=== PATIENT | male | born 1980 | race Caucasian/White ===

== ENCOUNTER 2020-02-02 11:24 | Inpatient (IN) | payer BC, MEDICAID ==
--- NOTE | 2020-02-02 11:44 | EDM.PDOC ---
ED HPI GENERAL MEDICAL PROBLEM - General Chief Complaint: Neurological Problem Stated Complaint: [facility] Time Seen by Provider: 02/02/20 11:30 - History of Present Illness INITIAL COMMENTS - FREE TEXT/NARRATIVE: 39-year-old male presents the emergency room with a seizure. The patient is a heavy drinker he stopped drinking possibly last night possibly 2 days ago. He has been drinking lots of Gatorade in order to stay hydrated. The mother who was not present last night thinks he was drinking yesterday but cannot find an empty bottle anywhere. He went to bed early when she checked on him this morning he was laying between the wall and the side of the bed. He had vomited mostly liquid prior to the mother's arrival this was not black or dark- colored. The mother did then observe him having a seizure and sounds like a generalized tonic-clonic activity that lasted 2-1/2 minutes she had already called 911. During the seizure he had a loss of bladder control he apparently bit his tongue and had some clear bloody discharge after the seizure coming from his mouth. EMS states there were a lot of empty Gatorade bottles in the house. The patient uses Klonopin 0.5 mg at least 3 times a day however he has been off this for several days. Patient has been drinking heavily for the last couple of months. He has needed to be admitted for alcohol withdrawal in the past. - Related Data Allergies Allergy/AdvReac Type Severity Reaction Status Date / Time No Known Allergies Allergy Verified 10/17/17 22:43 CDT Home Meds: Home Meds ClonazePAM [KlonoPIN] 0.5 mg PO DAILY 02/02/20 [History] Omeprazole 20 mg PO DAILY 02/02/20 [History] lisinopriL [Prinivil] 40 mg PO DAILY 02/02/20 [History] Past Medical History - Past Health History Medical/Surgical History: Denies Medical/Surgical History Cardiovascular History: Reports: Hypertension Psychiatric History: Reports: Addiction Other Psychiatric History: alcohol abuse - Infectious Disease History Infectious Disease History: Reports: Chicken Pox Social & Family History - Caffeine Use Caffeine Use: Reports: None ED ROS GENERAL - Review of Systems Review Of Systems: Unable To Obtain Reason Not Obtained: Patient is still somewhat postictal ED EXAM, GENERAL - Physical Exam Exam: See Below Exam Limited By: Other (. He will answer simple questions and follow simple commands during the exam.) General Appearance: Other (Somewhat fidgety and anxious) Eye Exam: Bilateral Eye: Normal Inspection, PERRL Ears: Normal External Exam, Normal Canal, Hearing Grossly Normal, Normal TMs Nose: Normal Inspection, Normal Mucosa, No Blood Throat/Mouth: Normal Teeth, Normal Gums, Normal Oropharynx, No Airway Compromise, Other (Bite norman on his tongue and on the buccal mucosa) Head: Atraumatic, Normocephalic Neck: Normal Inspection, Supple, Non-Tender, Full Range of Motion. No: Lymphadenopathy (L), Lymphadenopathy (R), Tender Lateral, Tender Midline, Thyromegaly Respiratory/Chest: No Respiratory Distress, Lungs Clear, Normal Breath Sounds Cardiovascular: Regular Rate, Rhythm, No Edema, No Murmur GI/Abdominal: Normal Bowel Sounds, Soft, Non-Tender Back Exam: Normal Inspection. No: CVA Tenderness (L), CVA Tenderness (R) Course - Vital Signs Last Recorded V/S: Last Vital Signs Temp 37.6 C 02/02/20 11:28 Pulse 146 H 02/02/20 11:28 Resp 24 H 02/02/20 11:28 BP 166/129 H 02/02/20 11:28 Pulse Ox - Orders/Labs/Meds Orders: Active Orders 24 hr Category Date Time Status Patient Status [ADT] Routine ADT 02/02/20 13:01 Active Antiembolic Devices [RC] PER UNIT ROUTINE Care 02/02/20 13:04 Active CIWAA Assessment [RC] Q15M Care 02/02/20 13:04 Active CIWAA Assessment [RC] Q1H Care 02/02/20 13:04 Active CIWAA Assessment [RC] Q30M Care 02/02/20 13:04 Active CIWAA Assessment [RC] Q4H Care 02/02/20 13:04 Active Cardiac Monitoring [RC] CONTINUOUS Care 02/02/20 13:02 Active Height and Weight [RC] DAILY Care 02/02/20 13:00 Active Intake and Output [RC] QSHIFT Care 02/02/20 13:02 Active Notify Provider [RC] PRN Care 02/02/20 13:04 Active Oxygen Therapy [RC] PRN Care 02/02/20 13:01 Active VTE/DVT Education [RC] PER UNIT ROUTINE Care 02/02/20 13:01 Active Vital Signs [RC] Q2H Care 02/02/20 13:00 Active Nothing per Oral Now Diet [DIET] Diet 02/02/20 Dinner Active BASIC METABOLIC PANEL,BMP [CHEM] AM Lab 02/03/20 05:11 Ordered CBC WITH AUTO DIFF [HEME] AM Lab 02/03/20 05:11 Ordered CORONAVIRUS COVID-19 RAPID [MOLEC] Stat Lab 02/02/20 13:30 Received DRUG SCREEN, URINE [URCHEM] Stat Lab 02/02/20 11:44 Ordered MAGNESIUM [CHEM] AM Lab 02/03/20 05:11 Ordered PHOSPHORUS [CHEM] AM Lab 02/03/20 05:11 Ordered UA RFX LUIS FERNANDO AND CULT IF INDIC [URIN] Stat Lab 02/02/20 11:47 Ordered LORazepam [Ativan] Med 02/02/20 13:00 Active See Protocol IV ASDIRECTED LORazepam [Ativan] Med 02/02/20 13:00 Active See Protocol PO ASDIRECTED Lactated Ringers [Ringers, Lactated] 1,000 ml Med 02/02/20 12:00 Active IV ASDIRECTED Lactated Ringers [Ringers, Lactated] 1,000 ml Med 02/02/20 13:00 Active IV ASDIRECTED Ondansetron [Zofran] Med 02/02/20 13:00 Active 4 mg IV Q6H PRN Thiamine [Vitamin B-1] 1,000 mg Med 02/02/20 13:00 Active Magnesium Sulfate [Magnesium Sulfate 50%] 4 gm Folic Acid 1 mg Dextrose 5%-0.9% NaCl [Dextrose 5%-Normal Saline] 1,000 ml IV ASDIRECTED Antiembolic Hose [OM.PC] Per Unit Routine Oth 02/02/20 13:02 Ordered Resuscitation Status Routine Resus Stat 02/02/20 13:00 Ordered Medication Orders Lactated Ringer's (Ringers, Lactated) 1,000 mls @ 150 mls/hr IV ASDIRECTED MARILU Thiamine HCl 1,000 mg/Magnesium Sulfate 4 gm/ Folic Acid 1 mg/ Dextrose/Sodium Chloride 1,018.2 mls @ 125 mls/hr IV ASDIRECTED MARILU Lactated Ringer's (Ringers, Lactated) 1,000 mls @ 150 mls/hr IV ASDIRECTED MARILU Lorazepam (Ativan) 0 mg IV ASDIRECTED MARILU; Protocol Lorazepam (Ativan) 0 mg PO ASDIRECTED MARILU; Protocol Ondansetron HCl (Zofran) 4 mg IV Q6H PRN PRN Reason: Nausea/Vomiting Labs: Laboratory Tests 02/02/20 02/02/20 02/02/20 Range/Units 11:36 11:36 11:36 WBC 7.22 (4.23-9.07) K/mm3 RBC 4.34 L (4.63-6.08) M/mm3 Hgb 14.7 (13.7-17.5) gm/dl Hct 41.4 (40.1-51.0) % MCV 95.4 H D (79.0-92.2) fl MCH 33.9 H (25.7-32.2) pg MCHC 35.5 (32.2-35.5) g/dl RDW Std Deviation 43.0 (35.1-43.9) fL Plt Count 98 L (163-337) K/mm3 MPV 10.6 (9.4-12.3) fl Neut % (Auto) 85.9 H (34.0-67.9) % Lymph % (Auto) 3.2 L (21.8-53.1) % [place] % (Auto) 10.5 (5.3-12.2) % Eos % (Auto) 0 L (0.8-7.0) Baso % (Auto) 0.1 (0.1-1.2) % Neut # (Auto) 6.20 H (1.78-5.38) K/mm3 Lymph # (Auto) 0.23 L (1.32-3.57) K/mm3 [place] # (Auto) 0.76 (0.30-0.82) K/mm3 Eos # (Auto) 0.00 L (0.04-0.54) K/mm3 Baso # (Auto) 0.01 (0.01-0.08) K/mm3 Manual Slide Review Abnormal smear Sodium 134 L D (136-145) mEq/L Potassium 3.8 (3.5-5.1) mEq/L Chloride 94 L D (98-107) mEq/L Carbon Dioxide 17 L (21-32) mEq/L Anion Gap 26.8 H (5-15) BUN 9 (7-18) mg/dL Creatinine 1.1 (0.7-1.3) mg/dL Est Cr Clr Drug Dosing TNP Estimated GFR (MDRD) > 60 (>60) mL/min BUN/Creatinine Ratio 8.2 L (14-18) Glucose 250 H (74-106) mg/dL Calcium 9.4 (8.5-10.1) mg/dL Phosphorus 1.4 L (2.6-4.7) mg/dL Magnesium 1.9 (1.8-2.4) mg/dl Total Bilirubin 2.1 H (0.2-1.0) mg/dL GGT 1542 H (15-85) U/L AST 185 H (15-37) U/L ALT 136 H (16-63) U/L Alkaline Phosphatase 109 (46-116) U/L Total Protein 8.1 (6.4-8.2) g/dl Albumin 4.2 (3.4-5.0) g/dl Globulin 3.9 gm/dL Albumin/Globulin Ratio 1.1 (1-2) TSH 3rd Generation 0.973 (0.358-3.74) uIU/mL Ethyl Alcohol 0.00 (0.00) gm% Meds: Medications Generic Name Dose Route Start Last Admin Trade Name Freq PRN Reason Stop Dose Admin Lactated Ringer's 1,000 mls @ 150 mls/hr 02/02/20 12:00 Ringers, Lactated IV ASDIRECTED MARILU Thiamine HCl 1,000 mg/ 1,018.2 mls @ 125 mls/hr 02/02/20 13:00 Magnesium Sulfate 4 gm/ Folic IV Acid 1 mg/ Dextrose/Sodium ASDIRECTED MARILU Chloride Lactated Ringer's 1,000 mls @ 150 mls/hr 02/02/20 13:00 Ringers, Lactated IV ASDIRECTED MARILU Lorazepam 0 mg 02/02/20 13:00 Ativan IV ASDIRECTED MARILU Protocol Lorazepam 0 mg 02/02/20 13:00 Ativan PO ASDIRECTED MARILU Protocol Ondansetron HCl 4 mg 02/02/20 13:00 Zofran IV Q6H PRN Nausea/Vomiting Discontinued Medications Generic Name Dose Route Start Last Admin Trade Name Freq PRN Reason Stop Dose Admin Cyanocobalamin 1,000 mcg 02/02/20 12:22 02/02/20 13:38 Vitamin B12 IM 02/02/20 12:23 1,000 mcg ONETIME ONE Administration Folic Acid 1 mg 02/03/20 12:22 Folic Acid IV 02/03/20 12:23 ONETIME ONE Lactated Ringer's 1,000 mls @ 999 mls/hr 02/02/20 11:48 02/02/20 11:55 Ringers, Lactated IV 02/02/20 12:48 999 mls/hr .BOLUS ONE Administration Lorazepam 2 mg 02/02/20 11:48 02/02/20 11:55 Ativan IVPUSH 02/02/20 11:49 2 mg ONETIME ONE Administration Lorazepam 1 mg 02/02/20 12:16 02/02/20 12:24 Ativan IVPUSH 02/02/20 12:17 1 mg ONETIME ONE Administration Lorazepam Confirm 02/02/20 13:00 02/02/20 13:40 Ativan Administered 02/02/20 13:01 Not Given Dose 2 mg .ROUTE .STK-MED ONE Lorazepam 2 mg 02/02/20 13:09 02/02/20 13:37 Ativan IVPUSH 02/02/20 13:10 2 mg ONETIME ONE Administration Thiamine HCl 100 mg 02/02/20 12:23 02/02/20 13:39 Vitamin B-1 IVPUSH 02/02/20 12:24 100 mg ONETIME ONE Administration - Re-Assessments/Exams Free Text/Narrative Re-Assessment/Exam: 02/02/20 12:47 GGT is very elevated blood alcohol is 0.0. I have discussed the situation with Dr. Duarte, our hospitalist who is discussing staffing issues and will see if we were capable of admitting this gentleman. 02/02/20 13:58 Dr. Duarte is capable of taking on the patient and we have staffing. She will assume further care. Departure - Departure Time of Disposition: 13:59 Disposition: Admitted As Inpatient 64 Clinical Impression: Alcohol withdrawal syndrome, Alcohol withdrawal seizure - Discharge Information Forms: ED Department Discharge Sepsis Event Note (ED) - Evaluation Sepsis Screening Result: No Definite Risk - Focused Exam Vital Signs: Vital Signs Temp Pulse Resp BP 02/02/20 11:28 37.6 C 146 H 24 H 166/129 H - My Orders Last 24 Hours: My Active Orders 02/02/20 11:44 DRUG SCREEN, URINE [URCHEM] Stat 02/02/20 11:47 UA RFX LUIS FERNANDO AND CULT IF INDIC [URIN] Stat 02/02/20 12:00 Lactated Ringers [Ringers, Lactated] 1,000 ml IV ASDIRECTED 02/02/20 13:30 CORONAVIRUS COVID-19 RAPID [MOLEC] Stat - Assessment/Plan Last 24 Hours: My Active Orders 02/02/20 11:44 DRUG SCREEN, URINE [URCHEM] Stat 02/02/20 11:47 UA RFX LUIS FERNANDO AND CULT IF INDIC [URIN] Stat 02/02/20 12:00 Lactated Ringers [Ringers, Lactated] 1,000 ml IV ASDIRECTED 02/02/20 13:30 CORONAVIRUS COVID-19 RAPID [MOLEC] Stat
[2020-02-02] MEDS ORDERED: LORazepam 2 MG/ML SDV IVPUSH ONE ×3 (11:48→13:09)
[2020-02-02] MEDS ORDERED: Lactated Ringers 1,000 ML IV ONE (11:48)
[2020-02-02] MEDS ORDERED: Lactated Ringers 1,000 ML IV SCH (12:00)
[2020-02-02] MEDS ORDERED: Cyanocobalamin (Vitamin B12) 1,000 MCG/ML SDV IM ONE (12:22)
[2020-02-02] MEDS ORDERED: Thiamine 200 MG/2 ML MDV IVPUSH ONE (12:23)
--- NOTE | 2020-02-02 12:55 | CT ---
Head CT Technique: Multiple axial sections through the brain were obtained. Intravenous contrast was not utilized. Comparison: No prior intracranial imaging is available. Findings: Ventricles along the basal cisterns and sulci over the convexities are within normal limits for the patient's age. Equivocal low density is noted within the posterior right occipital lobe. No other abnormal parenchymal densities are seen. No evidence of intracranial hemorrhage. No midline shift or mass-effect is appreciated. Bone window settings were reviewed which show no acute calvarial finding. Visualized mastoid sinuses and visualized paranasal sinuses show nothing acute. Impression: 1. Equivocal abnormality within the posterior right parietal region. Recommend MRI to further evaluate. Given the history of seizure contrast MRI study is also recommended. 2. No other acute finding is appreciated on noncontrasted CT exam. Diagnostic code #9 This report was dictated in MDT
[2020-02-02] MEDS ORDERED: LORazepam 2 MG/ML SDV ONE (13:00)
[2020-02-02] MEDS ORDERED: LORazepam 1 MG Tab PO SCH (13:00)
[2020-02-02] MEDS ORDERED: Thiamine 1,000 MG, Magnesium Sulfate 4 GM, Folic Acid 1 MG in Dextrose 5%-0.9% NaCl 1,0... IV SCH (13:00)
[2020-02-02] MEDS ORDERED: Ondansetron 4 MG/2 ML SDV IV PRN (13:00)
--- NOTE | 2020-02-02 13:36 | PCM.HP.2 ---
H&P History of Present Illness - General Date of Service: 02/02/20 Admit Problem/Dx: Admission Diagnosis/Problem Admission Diagnosis/Problem Alcohol withdrawal syndrome - History of Present Illness Initial Comments - Free Text/Narative: This is a 39-year-old male with past medical history of alcohol abuse, anxiety and hypertension who was brought to the emergency room by mom after having a seizure at home. As per patient's mom seizure was tonic-clonic movements, lasted about 2-1/2 minutes, just lose control of his urine, not of his bowel. Postictal state for about 15 minutes afterwards As per mom he has been a heavy drinker for the past 20 years as well as smoker of half A pack a day. Has been having increased drinking activity since he was fired 4 months ago. Was drinking yesterday, states his last drink was probably between 5 and 7 PM. Has not eaten anything in approximately 5 days Does state that he has lost about 25 pounds in the past month - Related Data Allergies/Adverse Reactions: Allergies Allergy/AdvReac Type Severity Reaction Status Date / Time No Known Allergies Allergy Verified 10/17/17 22:43 CDT Home Medications: Home Meds ClonazePAM [KlonoPIN] 0.5 mg PO DAILY 02/02/20 [History] Omeprazole 20 mg PO DAILY 02/02/20 [History] lisinopriL [Prinivil] 40 mg PO DAILY 02/02/20 [History] Past Medical History - Past Health History Medical/Surgical History: Denies Medical/Surgical History Cardiovascular History: Reports: Hypertension Psychiatric History: Reports: Addiction Other Psychiatric History: alcohol abuse - Infectious Disease History Infectious Disease History: Reports: Chicken Pox Social & Family History - Tobacco Use Smoking Status *Q: Current Every Day Smoker Years of Tobacco use: 20 Packs/Tins Daily: 0.5 - Caffeine Use Caffeine Use: Reports: None - Recreational Drug Use Recreational Drug Use: No H&P Review of Systems - Review of Systems: Review Of Systems: Unable To Obtain Reason Not Obtained: Patient severely agitated and hallucinating Exam - Exam Exam: See Below - Vital Signs Vital Signs: Last Vital Signs Temp 99.6 F 02/02/20 11:28 Pulse 146 H 02/02/20 11:28 Resp 24 H 02/02/20 11:28 BP 166/129 H 02/02/20 11:28 Pulse Ox Weight: 2.58 kg - Exam General: Lethargic. No: Oriented HEENT: Mucosa Moist & [place]. No: Conjunctiva Clear (injected) Neck: Supple, Trachea Midline, +2 Carotid Pulse wo Bruit, Full Range of Motion. No: Lymphadenopathy Lungs: Clear to Auscultation, Normal Respiratory Effort. No: Decreased Breath Sounds, Crackles, Rales, Rhonchi, Rub, Stridor, Wheezing Cardiovascular: Regular Rate, Regular Rhythm. No: Systolic Murmur, Diastolic Murmur, Rubs, Gallop/S3, Gallop/S4 GI/Abdominal Exam: Normal Bowel Sounds, Soft, Non-Tender, Distended. No: Guarding, Rigid, Rebound Extremities: Normal Inspection, Normal Range of Motion, Non-Tender, No Pedal Edema, Normal Capillary Refill Peripheral Pulses: 2+: Radial (L), Radial (R), Dorsalis Pedis (L), Dorsalis Pedis (R) Skin: Cool, Moist - Patient Data Result Diagrams: 02/03/20 05:25 02/03/20 05:25 Sepsis Event Note - Evaluation Sepsis Screening Result: No Definite Risk - Problem List (1) Delirium tremens SNOMED Code(s): 4913689 ICD Code: F10.231 - ALCOHOL DEPENDENCE WITH WITHDRAWAL DELIRIUM Status: Acute Current Visit: Yes (2) Anxiety SNOMED Code(s): 23403109 ICD Code: F41.9 - ANXIETY DISORDER, UNSPECIFIED Status: Acute Current Visit: Yes (3) Depression SNOMED Code(s): 23756640 ICD Code: F32.9 - MAJOR DEPRESSIVE DISORDER, SINGLE EPISODE, UNSPECIFIED Status: Acute Current Visit: Yes (4) Thrombocytopenia SNOMED Code(s): 790153073 ICD Code: D69.6 - THROMBOCYTOPENIA, UNSPECIFIED Status: Acute Current Visit: Yes (5) Abnormal LFTs SNOMED Code(s): 046112956 ICD Code: R94.5 - ABNORMAL RESULTS OF LIVER FUNCTION STUDIES Status: Acute Current Visit: Yes (6) Uncontrolled hypertension SNOMED Code(s): 03895715, 33120388 ICD Code: I10 - ESSENTIAL (PRIMARY) HYPERTENSION Status: Acute Current Visit: Yes (7) Sinus tachycardia SNOMED Code(s): 85553437 ICD Code: R00.0 - TACHYCARDIA, UNSPECIFIED Status: Acute Current Visit: Yes (8) Smoker SNOMED Code(s): 18968108 ICD Code: F17.200 - NICOTINE DEPENDENCE, UNSPECIFIED, UNCOMPLICATED Status: Acute Current Visit: Yes (9) Alcohol withdrawal seizure SNOMED Code(s): 383389109 ICD Code: F10.239 - ALCOHOL DEPENDENCE WITH WITHDRAWAL, UNSPECIFIED; R56.9 - UNSPECIFIED CONVULSIONS Status: Acute Current Visit: Yes (10) Alcohol withdrawal syndrome SNOMED Code(s): 551600214 ICD Code: F10.239 - ALCOHOL DEPENDENCE WITH WITHDRAWAL, UNSPECIFIED Status: Acute Current Visit: Yes (11) Alcohol abuse SNOMED Code(s): 42627277 ICD Code: F10.10 - ALCOHOL ABUSE, UNCOMPLICATED Status: Acute Current Visit: No (12) Hypertensive emergency SNOMED Code(s): 813902994524355 ICD Code: I16.1 - HYPERTENSIVE EMERGENCY Status: Acute Current Visit: Yes Problem List Initiated/Reviewed/Updated: Yes Assessment/Plan Comment:: ASSESSMENT Brought in by mom after seizure secondary to decreased alcohol intake Has had alcohol abuse problems approximately 20 years, multiple rehab stays. Last 1 in rehab facility here in [place] 4 years ago for 90 days Mom states "I am sure he has done every drug, but probably stopped 4 years ago" Has not eaten anything in 5 days Last drink yesterday between 5 and 7 PM Normally drinks about 1/5 or more a day of vodka but recently has been drinking more beer Mom to denies any prior suicidal ideation or attempts, per psychiatric admits Chronic benzodiazepine user, prescribed to take 3 times daily but mom states he takes them all at once Diagnosed with hypertension about 10 years ago as per mom, has never been controlled Patient got severely agitated during my evaluation, jumped out of bed and fell on his knees with severe hallucinations Decision was made to intubate, this was done in the emergency department Significant trauma to his tongue and inner cheeks after seizures Vital signs on admission: BP 166/129 (141), HR 146, RR 24, temp 99.6 Lab test Platelets 98,000 Chemistry: sodium 134, potassium 3.8, chloride 94, CO2 17, GFR more than 60, glucose 250 Liver function test: Total bilirubin 2.1, alkaline phosphatase 109, ALT 185, AST 136, total protein 8.1, albumin 4.2, GGT 1542 PLAN BY SYSTEMS Neurology: Minimize central acting medications as possible. Daily sedation vacation. Frequent neurologic exams by nursing staff. Continue sedation with Fentanyl and Versed for now and taper down as tolerated. Start Dexmedetomidine Goal RAAS -2 to -4 Banana bag x2 QD Respiratory: Start mechanical ventilation Aspiration precautions Oral care and regular suctioning by nursing Daily spontaneous breathing trials ABG and CXR as needed Cardiovascular: IVF resuscitation with LR Goal MAP > 65 GI and Nutrition: Insert OG tube, care by nursing OG tube at intermittent suctioning NPO for now PRN bowel regimen Kidney and Electrolytes: Insert Fontanez catheter for strict I/O Avoid nephrotoxic medications Renally dosed medications Labs as needed Endocrine: Scheduled Accu-checks q6h while NPO Hypoglycemia protocol in place. Infectious Disease: Trend temperature. Panculture if febrile. Hematology and Coagulation: No active bleeding, no coagulopathy to correct, no need to transfuse blood products at the moment. Goal hemoglobin >7g Musculoskeletal and Skin: Bed turn rotation by nursing staff. Daily evaluation for pressure ulcers. PROPHYLAXIS: DVT- Lovenox GI- Protonix CODE STATUS: FULL CODE DISPOSITION: Patient will be admitted to the ICU on mechanical ventilation for monitorization of alcohol withdrawal, SBT to evaluate extubation. - Mortality Measure Prognosis:: Good
[2020-02-02] MEDS ORDERED: hydrALAZINE 20 MG/ML SDV IVPUSH ONE (14:34)
[2020-02-02] MEDS: LORazepam 2 MG/ML SDV IV SCH (14:48)
[2020-02-02] MEDS ORDERED: Etomidate 2 MG/ML 20 ML SDV IVPUSH ONE (16:00)
[2020-02-02] MEDS ORDERED: Propofol 200 MG/20 ML SDV ONE (16:00)
[2020-02-02] MEDS ORDERED: Succinylcholine 200 MG/10 ML MDV ONE (16:00)
[2020-02-02] MEDS ORDERED: propofoL 100 ML ONE (16:48)
[2020-02-02] MEDS ORDERED: Labetalol 100 MG/20 ML MDV ONE (16:49)
[2020-02-02] MEDS ORDERED: fentaNYL 2,500 MCG in Sodium Chloride 0.9% 200 ML IV SCH (17:15)
--- NOTE | 2020-02-02 17:24 | PCM.PRNOTE ---
- Free Text/Narrative Note: Endotracheal Intubation Date: 02/02/2020 Time: 16:36 Indication: Airway protection Attending: Sharonda Duarte MD A time-out was completed verifying correct patient, procedure, site, positioning, and special equipment if applicable. The patient was placed in a flat position. Sedation was obtained using Etomidate, Succinylcholine and Propofol. The patient was easily ventilated using an Ambu bag. The MAC 4 BLADE was used and inserted into the oropharynx at which time there was a Grade 2 view of the vocal cords. A 7.5-icelandic endotracheal tube was inserted and visualized going through the voc al cords. The stylette was removed. Colorimetric change was visualized on the CO2 meter. Breath sounds were heard in both lung witt equally. The endotracheal tube was placed at 26 cm, measured at the teeth. A chest x-ray was ordered to assess forpneumothoraxand verifyendotracheal tube placement, advanced tube to 28cm at teeth. Estimated Blood Loss: None The patient tolerated the procedure well and there were no complications.
[2020-02-02] MEDS: fentaNYL 2,500 MCG in Sodium Chloride 0.9% 200 ML IV SCH (17:32)
[2020-02-02] MEDS: dexMEDEtomidine in dextrose 5% 400 MCG in Premix Bag 1 BAG IV SCH ×4 (17:33→20:28)
--- NOTE | 2020-02-02 17:50 | CR ---
Chest: Portable supine view of the chest was obtained. Comparison: Prior chest x-ray is not available. Tip of endotracheal tube lies at the upper level of the clavicles. Nasogastric tube is seen with tip lying within the region of the stomach. Heart size and mediastinum are normal. Lungs are clear with no acute parenchymal change. Bony structures are unremarkable other than old unhealed trauma within the distal left clavicle. Impression: 1. Tip of endotracheal tube at the upper levels of the clavicle. 2. Tip of nasogastric tube within the stomach. 3. Nothing acute is otherwise appreciated on portable chest x-ray. Diagnostic code #2 This report was dictated in MDT
[2020-02-02] MEDS: Lactated Ringers 1,000 ML IV SCH ×2 (19:00→23:54)
[2020-02-03] MEDS ORDERED: Furosemide 20 MG/2 ML VIAL IVPUSH ONE (00:48)
[2020-02-03] MEDS: LORazepam 2 MG/ML SDV IV SCH (03:04)
[2020-02-03] MEDS ORDERED: propofoL 100 ML ONE (03:14)
[2020-02-03] MEDS: propofoL 100 ML IV SCH ×4 (03:15→19:46)
[2020-02-03] MEDS: Lactated Ringers 1,000 ML IV SCH ×4 (03:45→23:47)
[2020-02-03] MEDS ORDERED: Sodium Chloride 0.9% 1,000 ML IV ONE (06:53)
[2020-02-03] MEDS: fentaNYL 2,500 MCG in Sodium Chloride 0.9% 200 ML IV SCH ×2 (07:44→23:47)
--- NOTE | 2020-02-03 08:40 | PCM.PN ---
- General Info Date of Service: 02/03/20 Subjective Update: INTERVAL HISTORY Overnight Events: - Urine output was minimal - Required high doses of sedation Vital Signs: MAP trend: 70-148 HR trend: 100-146x' Tmax: 101 SatO2: >96% Drips and IVF: Propofol @ 35 Versed @ 15 Fentanyl @ 10 Mechanical Ventilation: Intubation day: 02/02/2020 Mode: ACVC Vt: 400 FiO2: 35% PEEP: 5 PIP: 10 Pmean: 8 Pplateau: 15 I/E: 1:2.3 Cstat: 40 I/Os: UO: 255 24h balance: +2,406 BM: unknown New results: Hb 14.7 down to 12.4 Platelets down from 98 to 59 Na up from 134 to 140 K down from 3.8 to 2.8 GFR down from >60 to 30 PO4 up from 1.4 to 1.8 Mg up from 1.9 to 2.6 Diet: NPO Lines and tubes: ETT 02/02/2020 Fontanez catheter 02/02/2020 OG tube 02/02/2020 - Patient Data Vitals - Most Recent: Last Vital Signs Temp 97.6 F 02/03/20 08:00 Pulse 97 02/03/20 07:00 Resp 14 02/03/20 08:20 BP 98/66 02/03/20 08:00 Pulse Ox 97 02/03/20 08:20 Weight - Most Recent: 81.647 kg - Exam General: Sedated HEENT: No: Mucous Membr. Moist/[place] (dry with severe hallitosis) Neck: Supple, Other (mass over sternocleidomastoid 3X4 in) Lungs: Clear to Auscultation. No: Crackles, Rales, Rhonchi, Rub, Stridor, Wheezing Cardiovascular: Regular Rate, Regular Rhythm. No: Murmurs, Gallops, Rubs GI/Abdominal Exam: Normal Bowel Sounds, Soft, No Distention Extremities: Normal Inspection, No Pedal Edema Skin: Moist Sepsis Event Note - Evaluation Sepsis Screening Result: No Definite Risk - Problem List & Annotations (1) Delirium tremens SNOMED Code(s): 6288919 Code(s): F10.231 - ALCOHOL DEPENDENCE WITH WITHDRAWAL DELIRIUM Status: Acute Current Visit: Yes (2) Anxiety SNOMED Code(s): 81997917 Code(s): F41.9 - ANXIETY DISORDER, UNSPECIFIED Status: Acute Current Visit: Yes (3) Depression SNOMED Code(s): 80880523 Code(s): F32.9 - MAJOR DEPRESSIVE DISORDER, SINGLE EPISODE, UNSPECIFIED Status: Acute Current Visit: Yes (4) Thrombocytopenia SNOMED Code(s): 013018189 Code(s): D69.6 - THROMBOCYTOPENIA, UNSPECIFIED Status: Acute Current Visit: Yes (5) Abnormal LFTs SNOMED Code(s): 198719181 Code(s): R94.5 - ABNORMAL RESULTS OF LIVER FUNCTION STUDIES Status: Acute Current Visit: Yes (6) Uncontrolled hypertension SNOMED Code(s): 60187320, 20158894 Code(s): I10 - ESSENTIAL (PRIMARY) HYPERTENSION Status: Acute Current Visit: Yes (7) Sinus tachycardia SNOMED Code(s): 71009899 Code(s): R00.0 - TACHYCARDIA, UNSPECIFIED Status: Acute Current Visit: Yes (8) Smoker SNOMED Code(s): 85058483 Code(s): F17.200 - NICOTINE DEPENDENCE, UNSPECIFIED, UNCOMPLICATED Status: Acute Current Visit: Yes (9) Alcohol withdrawal seizure SNOMED Code(s): 515314523 Code(s): F10.239 - ALCOHOL DEPENDENCE WITH WITHDRAWAL, UNSPECIFIED; R56.9 - UNSPECIFIED CONVULSIONS Status: Acute Current Visit: Yes (10) Alcohol withdrawal syndrome SNOMED Code(s): 372230904 Code(s): F10.239 - ALCOHOL DEPENDENCE WITH WITHDRAWAL, UNSPECIFIED Status: Acute Current Visit: Yes (11) Alcohol abuse SNOMED Code(s): 27525713 Code(s): F10.10 - ALCOHOL ABUSE, UNCOMPLICATED Status: Acute Current Visit: No (12) Hypertensive emergency SNOMED Code(s): 533730429188053 Code(s): I16.1 - HYPERTENSIVE EMERGENCY Status: Acute Current Visit: Yes (13) Neck mass SNOMED Code(s): 530816295 Code(s): R22.1 - LOCALIZED SWELLING, MASS AND LUMP, NECK Status: Acute Current Visit: Yes (14) Hypokalemia SNOMED Code(s): 82596432 Code(s): E87.6 - HYPOKALEMIA Status: Acute Current Visit: Yes (15) Oliguria SNOMED Code(s): 30935320 Code(s): R34 - ANURIA AND OLIGURIA Status: Acute Current Visit: Yes (16) Anemia SNOMED Code(s): 111013849 Code(s): D64.9 - ANEMIA, UNSPECIFIED Status: Acute Current Visit: Yes (17) Urethral discharge in male SNOMED Code(s): 9946375 Code(s): R36.9 - URETHRAL DISCHARGE, UNSPECIFIED Status: Acute Current Visit: Yes - Problem List Review Problem List Initiated/Reviewed/Updated: Yes - Assessment Assessment:: 02/02/2020 Brought in by mom after seizure secondary to decreased alcohol intake Has had alcohol abuse problems approximately 20 years, multiple rehab stays. Last 1 in rehab facility here in [place] 4 years ago for 90 days Mom states "I am sure he has done every drug, but probably stopped 4 years ago" Has not eaten anything in 5 days Last drink yesterday between 5 and 7 PM Normally drinks about 1/5 or more a day of vodka but recently has been libby acosta more beer Mom to denies any prior suicidal ideation or attempts, per psychiatric admits Chronic benzodiazepine user, prescribed to take 3 times daily but mom states he takes them all at once Diagnosed with hypertension about 10 years ago as per mom, has never been controlled Patient got severely agitated during my evaluation, jumped out of bed and fell on his knees with severe hallucinations Decision was made to intubate, this was done in the emergency department Significant trauma to his tongue and inner cheeks after seizures Vital signs on admission: BP 166/129 (141), HR 146, RR 24, temp 99.6 Lab test Platelets 98,000 Chemistry: sodium 134, potassium 3.8, chloride 94, CO2 17, GFR more than 60, glucose 250 Liver function test: Total bilirubin 2.1, alkaline phosphatase 109, ALT 185, AST 136, total protein 8.1, albumin 4.2, GGT 1542 PLAN Sedation with Fentanyl, Versed and Precedex Banana bag x2 QD Start mechanical ventilation IVF resuscitation with LR Insert OG tube, care by nursing OG tube at intermittent suctioning Insert Fontanez catheter for strict I/O Scheduled Accu-checks q6h while NPO Hypoglycemia protocol in place. 02/03/2020 Urine output significantly dropped overnight with total output <300 in 12h GFR drom from >60 to 30 FeNa 1.26%, not pre-renal Required high doses of sedation overnight--> started on propofol Central line placed - Plan Plan:: Neurology: Minimize central acting medications as possible. Daily sedation vacation. Frequent neurologic exams by nursing staff. Continue sedation with Dexmedetomidine, Fentanyl and Versed for now and taper down as tolerated. Goal RAAS -2 to -4 Banana bag #2 today Respiratory: Continue mechanical ventilation Aspiration precautions Oral care and regular suctioning by nursing Daily spontaneous breathing trials ABG and CXR as needed Cardiovascular: IVF resuscitation with LR Goal MAP > 65 GI and Nutrition: OG tube care by nursing OG tube at intermittent suctioning NPO for now PRN bowel regimen Kidney and Electrolytes: Fontanez catheter care Avoid nephrotoxic medications Renally dosed medications Labs as needed Endocrine: Scheduled Accu-checks q6h while NPO Hypoglycemia protocol in place. Infectious Disease: Swab penile discharge and send to lab for culture, Gonorrhea and Chlamydia Trend temperature. Panculture if febrile. Hematology and Coagulation: No active bleeding, no coagulopathy to correct, no need to transfuse blood products at the moment. Goal hemoglobin >7g Musculoskeletal and Skin: Bed turn rotation by nursing staff. Daily evaluation for pressure ulcers. PROPHYLAXIS: DVT- Lovenox GI- Protonix CODE STATUS: FULL CODE DISPOSITION: Patient will remain admitted to the ICU on mechanical ventilation for monitorization of alcohol withdrawal under sedation.
[2020-02-03] MEDS ORDERED: Potassium Phosphates 60 MMOLE in Sodium Chloride 0.9% 1,000 ML IV ONE (11:00)
[2020-02-03] MEDS ORDERED: Lactated Ringers 1,000 ML IV ONE ×2 (11:00→12:00)
[2020-02-03] MEDS ORDERED: Folic Acid 50 MG/10 ML MDV IV ONE (12:22)
[2020-02-03] MEDS: dexMEDEtomidine in dextrose 5% 400 MCG in Premix Bag 1 BAG IV SCH ×2 (16:54)
--- NOTE | 2020-02-03 18:06 | PCM.PRNOTE ---
- Free Text/Narrative Note: Central Venous Catheter Placement Date: 02/03/2020 Indication: Caustic medication use Attending: Sharonda Duarte MD A time-out was completed verifying correct patient, procedure, site, positioning, and special equipment if applicable. The patient was placed in a dependent position appropriate for central line placement based on the vein to becannulated. The patients right neck was prepped and draped in sterile fashion. Ultrasound was used to locate internal jugular lumen, observed next to mass. 1%Lidocainewas used to anesthetize the surrounding skin area. Insertion was attempted without success. Decision was made to change sides. The patients left neck was prepped and draped in sterile fashion. 1%Lidocainewas used to anesthetize the surrounding skin area. A triple lumen 7-FrenchCordiscatheter was introduced into the the left internal jugular using the Seldingertechnique and under ultrasound guidance. The catheter was threaded smoothly over the guide wire and appropriate blood return was obtained. Each lumen of the catheter was evacuated of air and flushed with sterile saline. The catheter was then sutured in place to the skin and a sterile dressing applied. Perfusion to the extremity distal to the point of catheter insertion was checked and found to be adequate. Estimated Blood Loss: 30mL The patient tolerated the procedure well and there were no complications.
[2020-02-03] MEDS ORDERED: Furosemide 40 MG/4 ML VIAL IVPUSH ONE (19:34)
[2020-02-03] MEDS: Acetaminophen 650 MG Supp RECTAL PRN (20:20)
[2020-02-03] MEDS: Ampicillin/Sulbactam Na 3 GM in Sodium Chloride 0.9% 100 ML IV SCH (20:21)
[2020-02-03] MEDS ORDERED: Azithromycin 1,000 MG in Sodium Chloride 0.9% 500 ML IV ONE (22:00)
[2020-02-03] MEDS ORDERED: cefTRIAXone 1 GM in Sodium Chloride 0.9% 100 ML IV ONE (22:00)
[2020-02-04] MEDS: propofoL 100 ML IV SCH ×2 (01:12→05:16)
[2020-02-04] MEDS: Ampicillin/Sulbactam Na 3 GM in Sodium Chloride 0.9% 100 ML IV SCH ×4 (03:28→20:48)
[2020-02-04] MEDS: Lactated Ringers 1,000 ML IV SCH ×5 (03:28→22:36)
[2020-02-04] MEDS: dexMEDEtomidine in dextrose 5% 400 MCG in Premix Bag 1 BAG IV SCH ×4 (09:56→19:10)
[2020-02-04] MEDS ORDERED: Midazolam 5 MG/ML 5 ML MDV IV ONE (10:10)
[2020-02-04] MEDS ORDERED: Midazolam 5 MG/ML 10 ML MDV IV ONE (10:10)
[2020-02-04] MEDS ORDERED: levETIRAcetam 1,000 MG in Sodium Chloride 0.9% 100 ML IV ONE (10:14)
[2020-02-04] MEDS ORDERED: Labetalol 100 MG/20 ML MDV ONE (10:30)
[2020-02-04] MEDS ORDERED: Labetalol 100 MG/20 ML MDV IVPUSH ONE (10:33)
[2020-02-04] MEDS ORDERED: 50% Dextrose in Water 50 ML Syringe IVPUSH PRN (10:35)
[2020-02-04] MEDS ORDERED: Magnesium Sulfate/Water 2 GM in Premix Bag 1 BAG IV ONE (11:12)
[2020-02-04] MEDS ORDERED: Levofloxacin/Dextrose 5%-Water 750 MG in Premix Bag 1 BAG IV SCH (11:30)
--- NOTE | 2020-02-04 11:31 | PCM.PN ---
- General Info Date of Service: 02/04/20 Subjective Update: INTERVAL HISTORY Overnight Events: - Urine output was increased after Lasix Vital Signs: BP trend: 87-126/52-105 HR trend: 91-116x' Tmax: 101.1 SatO2: >87% Drips and IVF: Propofol @ 15 Versed @ 15 Fentanyl @ 20 LR @250 Mechanical Ventilation: Intubation day: 02/02/2020 Mode: ACVC Vt: 400 FiO2: 50% RR: 12 PEEP: 5 PIP: 20 Pmean: 9 Pplateau: 15 I/E: 1:5.1 Cstat: 41 New results: WBC down from 5.21 to 3.05 Hb 12.4 down to 11 Platelets down from 59 to 50 Na up from 134 to 140 K up from 2.8 to 4.1 GFR down from 30 to 16 PO4 up from 1.8 to 6.5 Mg up down from 2.6 to 1.7 ABGs7.19/47/56/17./87 Diet: NPO Lines and tubes: ETT 02/02/2020 Fontanez catheter 02/02/2020 OG tube 02/02/2020 - Patient Data Vitals - Most Recent: Last Vital Signs Temp 99.9 F 02/04/20 07:50 Pulse 114 H 02/04/20 06:00 Resp 12 02/04/20 07:50 BP 129/85 02/04/20 07:01 Pulse Ox 97 02/04/20 08:49 Weight - Most Recent: 82.735 kg Sepsis Event Note - Evaluation Sepsis Screening Result: Severe Sepsis Risk - Focused Exam Vital Signs: Vital Signs Temp Temp Temp Pulse Resp BP BP 02/04/20 08:49 02/04/20 08:28 02/04/20 07:50 99.9 F 12 02/04/20 07:40 99.9 F 13 02/04/20 07:30 99.9 F 13 02/04/20 07:20 99.9 F 14 02/04/20 07:10 99.9 F 12 02/04/20 07:01 99.9 F 13 129/85 02/04/20 07:00 99.9 F 12 02/04/20 06:50 99.9 F 13 02/04/20 06:40 100.0 F 12 02/04/20 06:30 100.0 F 13 02/04/20 06:20 100.0 F 12 02/04/20 06:10 100.0 F 13 02/04/20 06:01 100.2 F 12 127/86 02/04/20 06:00 100.2 F 100.0 F 114 H 13 127/86 02/04/20 05:50 100.2 F 11 L 02/04/20 05:40 100.2 F 13 02/04/20 05:30 100.2 F 13 02/04/20 05:20 100.2 F 11 L 02/04/20 05:10 100.2 F 12 02/04/20 05:01 100.2 F 13 131/90 02/04/20 05:00 100.2 F 111 H 14 131/90 02/04/20 04:50 100.2 F 13 02/04/20 04:40 100.2 F 13 02/04/20 04:30 100.2 F 12 02/04/20 04:20 100.2 F 12 02/04/20 04:10 100.0 F 11 L 02/04/20 04:01 99.9 F 11 L 123/93 H 02/04/20 04:00 99.9 F 100.2 F 111 H 10 L 123/93 H 02/04/20 03:50 99.9 F 12 02/04/20 03:40 99.7 F 17 02/04/20 03:30 99.9 F 13 02/04/20 03:20 99.7 F 12 02/04/20 03:10 99.7 F 12 02/04/20 03:01 99.7 F 12 02/04/20 03:00 99.7 F 116 H 13 124/87 124/87 02/04/20 02:59 99.7 F 12 02/04/20 02:50 99.7 F 12 02/04/20 02:40 99.7 F 12 02/04/20 02:30 99.7 F 12 02/04/20 02:20 99.7 F 13 02/04/20 02:10 99.5 F 12 02/04/20 02:01 99.5 F 14 02/04/20 02:00 99.5 F 99.5 F 108 H 13 126/81 126/81 02/04/20 01:59 99.5 F 14 02/04/20 01:50 99.5 F 12 02/04/20 01:40 99.3 F 13 02/04/20 01:30 99.3 F 11 L 02/04/20 01:20 99.3 F 13 02/04/20 01:10 99.3 F 14 02/04/20 01:01 99.3 F 13 02/04/20 01:00 99.3 F 105 H 13 124/81 02/04/20 00:02 02/04/20 00:00 99.1 F 104 H 12 113/81 Pulse Ox Pulse Ox 02/04/20 08:49 97 02/04/20 08:28 90 L 02/04/20 07:50 94 L 02/04/20 07:40 91 L 02/04/20 07:30 94 L 02/04/20 07:20 93 L 02/04/20 07:10 93 L 02/04/20 07:01 93 L 02/04/20 07:00 93 L 02/04/20 06:50 91 L 02/04/20 06:40 93 L 02/04/20 06:30 93 L 02/04/20 06:20 93 L 02/04/20 06:10 92 L 02/04/20 06:01 93 L 02/04/20 06:00 93 L 02/04/20 05:50 94 L 02/04/20 05:40 93 L 02/04/20 05:30 94 L 02/04/20 05:20 95 02/04/20 05:10 95 02/04/20 05:01 95 02/04/20 05:00 94 L 02/04/20 04:50 93 L 02/04/20 04:40 94 L 02/04/20 04:30 93 L 02/04/20 04:20 95 02/04/20 04:10 96 02/04/20 04:01 99 02/04/20 04:00 98 02/04/20 03:50 92 L 02/04/20 03:40 92 L 02/04/20 03:30 95 02/04/20 03:20 96 02/04/20 03:10 96 02/04/20 03:01 94 L 02/04/20 03:00 96 02/04/20 02:59 96 02/04/20 02:50 95 02/04/20 02:40 96 02/04/20 02:30 94 L 02/04/20 02:20 95 02/04/20 02:10 96 02/04/20 02:01 94 L 02/04/20 02:00 95 02/04/20 01:59 96 02/04/20 01:50 96 02/04/20 01:40 96 02/04/20 01:30 95 02/04/20 01:20 97 02/04/20 01:10 95 02/04/20 01:01 95 02/04/20 01:00 96 02/04/20 00:02 93 L 02/04/20 00:00 94 L Date Exam was Performed: 02/04/20 Time Exam was Performed: 19:05 - Problem List & Annotations (1) Delirium tremens SNOMED Code(s): 2397016 Code(s): F10.231 - ALCOHOL DEPENDENCE WITH WITHDRAWAL DELIRIUM Status: Acute Current Visit: Yes (2) Anxiety SNOMED Code(s): 07963307 Code(s): F41.9 - ANXIETY DISORDER, UNSPECIFIED Status: Acute Current Visit: Yes (3) Depression SNOMED Code(s): 93082259 Code(s): F32.9 - MAJOR DEPRESSIVE DISORDER, SINGLE EPISODE, UNSPECIFIED Status: Acute Current Visit: Yes (4) Thrombocytopenia SNOMED Code(s): 714142355 Code(s): D69.6 - THROMBOCYTOPENIA, UNSPECIFIED Status: Acute Current Visit: Yes (5) Abnormal LFTs SNOMED Code(s): 975233169 Code(s): R94.5 - ABNORMAL RESULTS OF LIVER FUNCTION STUDIES Status: Acute Current Visit: Yes (6) Uncontrolled hypertension SNOMED Code(s): 14851906, 81618472 Code(s): I10 - ESSENTIAL (PRIMARY) HYPERTENSION Status: Acute Current Visit: Yes (7) Sinus tachycardia SNOMED Code(s): 65140153 Code(s): R00.0 - TACHYCARDIA, UNSPECIFIED Status: Acute Current Visit: Yes (8) Smoker SNOMED Code(s): 45963490 Code(s): F17.200 - NICOTINE DEPENDENCE, UNSPECIFIED, UNCOMPLICATED Status: Acute Current Visit: Yes (9) Alcohol withdrawal seizure SNOMED Code(s): 892083177 Code(s): F10.239 - ALCOHOL DEPENDENCE WITH WITHDRAWAL, UNSPECIFIED; R56.9 - UNSPECIFIED CONVULSIONS Status: Acute Current Visit: Yes (10) Alcohol withdrawal syndrome SNOMED Code(s): 551315502 Code(s): F10.239 - ALCOHOL DEPENDENCE WITH WITHDRAWAL, UNSPECIFIED Status: Acute Current Visit: Yes (11) Alcohol abuse SNOMED Code(s): 12412473 Code(s): F10.10 - ALCOHOL ABUSE, UNCOMPLICATED Status: Acute Current Visit: No (12) Hypertensive emergency SNOMED Code(s): 138981811188983 Code(s): I16.1 - HYPERTENSIVE EMERGENCY Status: Acute Current Visit: Yes (13) Neck mass SNOMED Code(s): 444658746 Code(s): R22.1 - LOCALIZED SWELLING, MASS AND LUMP, NECK Status: Acute Current Visit: Yes (14) Hypokalemia SNOMED Code(s): 68403379 Code(s): E87.6 - HYPOKALEMIA Status: Acute Current Visit: Yes (15) Oliguria SNOMED Code(s): 43462154 Code(s): R34 - ANURIA AND OLIGURIA Status: Acute Current Visit: Yes (16) Anemia SNOMED Code(s): 738583013 Code(s): D64.9 - ANEMIA, UNSPECIFIED Status: Acute Current Visit: Yes (17) Urethral discharge in male SNOMED Code(s): 9087220 Code(s): R36.9 - URETHRAL DISCHARGE, UNSPECIFIED Status: Acute Current Visit: Yes (18) Hyperphosphatemia SNOMED Code(s): 99052810 Code(s): E83.39 - OTHER DISORDERS OF PHOSPHORUS METABOLISM Status: Acute Current Visit: Yes (19) Hypomagnesemia SNOMED Code(s): 891917794 Code(s): E83.42 - HYPOMAGNESEMIA Status: Acute Current Visit: Yes (20) High anion gap metabolic acidosis SNOMED Code(s): 38880214 Code(s): E87.2 - ACIDOSIS Status: Acute Current Visit: Yes (21) Metabolic alkalosis with respiratory acidosis SNOMED Code(s): 059350322 Code(s): E87.4 - MIXED DISORDER OF ACID-BASE BALANCE Status: Acute Current Visit: Yes (22) Macrocytosis SNOMED Code(s): 259980848 Code(s): D75.89 - OTHER SPECIFIED DISEASES OF BLOOD AND BLOOD-FORMING ORGANS Status: Acute Current Visit: Yes (23) Hypoxemia SNOMED Code(s): 660215614 Code(s): R09.02 - HYPOXEMIA Status: Acute Current Visit: Yes (24) Aspiration pneumonia SNOMED Code(s): 512948706 Code(s): J69.0 - PNEUMONITIS DUE TO INHALATION OF FOOD AND VOMIT Status: Acute Current Visit: Yes - Problem List Review Problem List Initiated/Reviewed/Updated: Yes - Assessment Assessment:: 02/02/2020 Brought in by mom after seizure secondary to decreased alcohol intake Has had alcohol abuse problems approximately 20 years, multiple rehab stays. Last 1 in rehab facility here in [place] 4 years ago for 90 days Mom states "I am sure he has done every drug, but probably stopped 4 years ago" Has not eaten anything in 5 days Last drink yesterday between 5 and 7 PM Normally drinks about 1/5 or more a day of vodka but recently has been drinking more beer Mom to denies any prior suicidal ideation or attempts, per psychiatric admits Chronic benzodiazepine user, prescribed to take 3 times daily but mom states he takes them all at once Diagnosed with hypertension about 10 years ago as per mom, has never been controlled Patient got severely agitated during my evaluation, jumped out of bed and fell on his knees with severe hallucinations Decision was made to intubate, this was done in the emergency department Significant trauma to his tongue and inner cheeks after seizures Vital signs on admission: BP 166/129 (141), HR 146, RR 24, temp 99.6 Lab test Platelets 98,000 Chemistry: sodium 134, potassium 3.8, chloride 94, CO2 17, GFR more than 60, glucose 250 Liver function test: Total bilirubin 2.1, alkaline phosphatase 109, ALT 185, AST 136, total protein 8.1, albumin 4.2, GGT 1542 PLAN Sedation with Fentanyl, Versed and Precedex Banana bag x2 QD Start mechanical ventilation IVF resuscitation with LR Insert OG tube, care by nursing OG tube at intermittent suctioning Insert Fontanez catheter for strict I/O Scheduled Accu-checks q6h while NPO Hypoglycemia protocol in place. 02/03/2020 Urine output significantly dropped overnight with total output <300 in 12h GFR drom from >60 to 30 FeNa 1.26%, not pre-renal Required high doses of sedation overnight--> started on propofol Central line placed Spiked a fever in the afternoon and started producing thicker and foul smelling sputum VS trend BP 87-126/52-105 Tmax 101.1 91-116x' >87% on FiO2 35-40% PLAN Continue sedation with Dexmedetomidine, Fentanyl and Versed for now and taper down as tolerated. Banana bag #2 today Swab penile discharge and send to lab for culture, Gonorrhea and Chlamydia - Plan Plan:: Neurology: Daily sedation vacation. Frequent neurologic exams by nursing staff. Continue sedation with Dexmedetomidine, Fentanyl and Versed for now and taper down as tolerated. Goal RAAS -2 to -4 Respiratory: Continue mechanical ventilation Aspiration precautions Oral care and regular suctioning by nursing Daily spontaneous breathing trials Start Levaquin, Vancomycin, Unasyn CXR today Cardiovascular: IVF resuscitation with LR Goal MAP > 65 GI and Nutrition: OG tube care by nursing OG tube at intermittent suctioning NPO for now PRN bowel regimen Start Pulmocare at 10ml/hr Kidney and Electrolytes: Fontanez catheter care Avoid nephrotoxic medications Renally dosed medications Labs as needed Continue Lasix Endocrine: Scheduled Accu-checks q6h while NPO Hypoglycemia protocol in place. Infectious Disease: Swab penile discharge and send to lab for culture, Gonorrhea and Chlamydia Trend temperature. Panculture if febrile. Hematology and Coagulation: No active bleeding, no coagulopathy to correct, no need to transfuse blood products at the moment. Goal hemoglobin >7g Musculoskeletal and Skin: Bed turn rotation by nursing staff. Daily evaluation for pressure ulcers. PROPHYLAXIS: DVT- Lovenox GI- Protonix CODE STATUS: FULL CODE DISPOSITION: Patient will remain admitted to the ICU on mechanical ventilation for monitorization of alcohol withdrawal under sedation.
[2020-02-04] MEDS: fentaNYL 2,500 MCG in Sodium Chloride 0.9% 200 ML IV SCH (11:47)
--- NOTE | 2020-02-04 12:19 | CT ---
Head CT Technique: Multiple axial sections through the brain were obtained. Intravenous contrast was not utilized. Comparison: Prior head CT study of 02/02/20. Findings: Ventricles along with basal cisterns and sulci over the convexities are within normal limits for the patient's age. No abnormal parenchymal densities are seen. No evidence of intracranial hemorrhage. Previous questioned abnormality within the posterior right occipital lobe is not appreciated with certainty on current study. No midline shift or mass-effect is seen. Bone window settings were reviewed. No acute calvarial finding is seen. Increasing mucosal thickening is seen within the ethmoid sinuses. Minimal mucosal thickening is noted within the maxillary sinuses. Sphenoid sinus shows minimal mucosal thickening. Minimal fluid is seen within an inferior left mastoid sinus. No acute calvarial finding is seen. Impression: 1. Slight increasing sinus disease. 2. No acute intracranial abnormality is otherwise seen. Please correlate if patient's symptoms warrant further evaluation by MRI. Diagnostic code #3 This report was dictated in MDT
[2020-02-04] MEDS ORDERED: Vancomycin 1.5 GM in Sodium Chloride 0.9% 500 ML IV ONE (12:30)
[2020-02-04] MEDS: Acetaminophen 650 MG Supp RECTAL PRN (13:01)
--- NOTE | 2020-02-04 13:17 | CT ---
CT neck Technique: Multiple axial sections were obtained from above the external auditory canals inferiorly to the lung apices. Intravenous contrast not utilized. Findings: Fatty density is noted within the right neck compatible with lipoma. This lipoma has an approximate craniocaudal measurement of 7.2 cm with transverse measurement of 2.8 cm and AP measurement of 3.8 cm. This lipoma begins at the level of the lower parotid salivary gland and extends superficial to the sternocleidomastoid muscle but beneath the platysma muscle. Endotracheal tube is seen. Distal end not seen. Nasogastric tube is seen with distal end not being seen. Left jugular line is also noted with distal end not being seen. Slight soft tissue density noted lateral to the proximal internal carotid artery on the right side. No discrete adenopathy is seen. Minimal degenerative change is noted within cervical spine. Prevertebral soft tissues are normal. Impression: 1. Findings compatible with right-sided lipoma as described above. 2. Slight increased density lateral to the right internal carotid artery. Uncertain if this represents something acute as inflammation or hematoma. This could also represent scarring from old injury. 3. Other findings which are believed to be incidental as described above. Diagnostic code #3 This report was dictated in MDT I agree with preliminary report from [facility], finalized on 02/03/20, 7:52 PM Central Daylight Time
--- NOTE | 2020-02-04 19:37 | PCM.SN.2 ---
- Free Text/Narrative Note: RN called to room to evaluate patient around 10AM - Notified by nursing staff about patient having seizures - Arrived in room and patient was still having tonic clonic movements, these lasted for about 10 minutes; about 5 minutes later he once again started having these tonic clonic movements which lasted for approximately 10 more minutes - Multiple medications were attempted to control seizure - 20mg Versed IV STAT - Keppra load of 1g - Fosphenytoin load - CT head without contrast was performed and evaluated by myself, no abnormalities were seen - No more seizure episodes overnight
--- NOTE | 2020-02-04 20:01 | PCM.SN.2 ---
- Free Text/Narrative Note: OVERNIGHT NURSING CALL - Was called around 3AM by nurse international recruiter, Alpa who indicated patient was still very agitates and not responding to current sedation medications - I asked her to start propofol as a 3rd sedation drug to improve ventilator synchrony as well as sedation. - Goal RAAS still between -2 and -4
--- NOTE | 2020-02-04 20:06 | CR ---
Chest: Comparison: Prior chest x-ray of 02/02/20. Area of consolidation are noted within the right mid to lower lung as well as increasing density within left perihilar as well as patchy area of increased density within the left lung base. These findings are all an interval change from prior study and could certainly represent change from multifocal aspiration. Endotracheal tube is noted. Tip lies at the lower level of clavicles. Left jugular line is seen with tip lying within the superior vena cava. Nasogastric tube is partially seen with tip lying within the stomach. Heart is mildly enlarged. Bony structures are grossly intact. Impression: 1. Increasing density on both sides of the chest as described above. Findings could certainly represent multifocal aspiration. 2. Stable tubes and catheters. 3. Heart is slightly enlarged. Diagnostic code #5 Study was dictated in MDT
[2020-02-04] MEDS: Dextrose 5%-Lactated Ringers 1,000 ML IV SCH (23:03)
[2020-02-05] MEDS: fentaNYL 2,500 MCG in Sodium Chloride 0.9% 200 ML IV SCH (00:09)
[2020-02-05] MEDS: Ampicillin/Sulbactam Na 3 GM in Sodium Chloride 0.9% 100 ML IV SCH ×2 (03:44→09:23)
[2020-02-05 05:10] VITALS: PULSE 81
[2020-02-05] MEDS ORDERED: Furosemide 40 MG/4 ML VIAL IVPUSH ONE (05:58)
[2020-02-05] MEDS ORDERED: Sodium Bicarbonate 8.4% 50 MEQ/50 ML SDV IVPUSH ONE (06:15)
--- NOTE | 2020-02-05 08:51 | CR ---
Chest: Portable view of the chest was obtained. Comparison: Prior chest x-ray of 02/04/20. Continuing increased density on both sides of the chest. Findings are slightly improved within the consolidating density within the right mid to lower chest. Other findings are stable. Endotracheal tube is stable in position with tip lying at the lower level clavicles. Nasogastric tube is seen with tip lying within the stomach. Left jugular line is also stable. Heart size and mediastinum as well as osseous structures are unchanged. Impression: 1. Stable tubes and catheters. 2. Increased density on both sides of the chest. Findings are stable with the exception of slight improvement in the area of consolidation within the right mid to lower lung. Diagnostic code #3 This report was dictated in MDT
--- NOTE | 2020-02-05 09:30 | PCM.DCSUM1 ---
Discharge Summary - Hospital Course HPI Initial Comments: This is a 39-year-old male with past medical history of alcohol abuse, anxiety and hypertension who was brought to the emergency room by mom after having a seizure at home. As per patient's mom seizure was tonic-clonic movements, lasted about 2-1/2 minutes, just lose control of his urine, not of his bowel. Postictal state for about 15 minutes afterwards As per mom he has been a heavy drinker for the past 20 years as well as smoker of half A pack a day. Has been having increased drinking activity since he was fired 4 months ago. Was drinking yesterday, states his last drink was probably between 5 and 7 PM. Has not eaten anything in approximately 5 days Does state that he has lost about 25 pounds in the past month Diagnosis: Stroke: No - Discharge Data Discharge Date: 02/05/20 Discharge Disposition: DC/Tfer to Acute Hospital 02 Condition: Stable - Referral to Home Health Primary Care Physician: Jean-Paul Proctor MD - Discharge Diagnosis/Problem(s) (1) Alcohol withdrawal seizure SNOMED Code(s): 958228637 ICD Code: F10.239 - ALCOHOL DEPENDENCE WITH WITHDRAWAL, UNSPECIFIED; R56.9 - UNSPECIFIED CONVULSIONS Status: Acute Current Visit: Yes (2) Alcohol withdrawal syndrome SNOMED Code(s): 927975090 ICD Code: F10.239 - ALCOHOL DEPENDENCE WITH WITHDRAWAL, UNSPECIFIED Status: Acute Current Visit: Yes (3) Aspiration pneumonia SNOMED Code(s): 823871965 ICD Code: J69.0 - PNEUMONITIS DUE TO INHALATION OF FOOD AND VOMIT Status: Acute Current Visit: Yes (4) High anion gap metabolic acidosis SNOMED Code(s): 73276950 ICD Code: E87.2 - ACIDOSIS Status: Acute Current Visit: Yes (5) Hypokalemia SNOMED Code(s): 91233862 ICD Code: E87.6 - HYPOKALEMIA Status: Acute Current Visit: Yes (6) Thrombocytopenia SNOMED Code(s): 395783004 ICD Code: D69.6 - THROMBOCYTOPENIA, UNSPECIFIED Status: Acute Current Visit: Yes (7) Renal failure SNOMED Code(s): 26107653 ICD Code: N19 - UNSPECIFIED KIDNEY FAILURE Status: Acute Current Visit: Yes (8) Oliguria SNOMED Code(s): 75284643 ICD Code: R34 - ANURIA AND OLIGURIA Status: Acute Current Visit: Yes - Patient Summary/Data Hospital Course: 02/02/2020 Brought in by mom after seizure secondary to decreased alcohol intake Has had alcohol abuse problems approximately 20 years, multiple rehab stays. Last 1 in rehab facility here in [place] 4 years ago for 90 days Mom states "I am sure he has done every drug, but probably stopped 4 years ago" Has not eaten anything in 5 days Last drink yesterday between 5 and 7 PM Normally drinks about 1/5 or more a day of vodka but recently has been drinking more beer Mom to denies any prior suicidal ideation or attempts, per psychiatric admits Chronic benzodiazepine user, prescribed to take 3 times daily but mom states he takes them all at once Diagnosed with hypertension about 10 years ago as per mom, has never been controlled Patient got severely agitated during my evaluation, jumped out of bed and fell on his knees with severe hallucinations Decision was made to intubate, this was done in the emergency department Significant trauma to his tongue and inner cheeks after seizures Vital signs on admission: BP 166/129 (141), HR 146, RR 24, temp 99.6 Lab test Platelets 98,000 Chemistry: sodium 134, potassium 3.8, chloride 94, CO2 17, GFR more than 60, glucose 250 Liver function test: Total bilirubin 2.1, alkaline phosphatase 109, ALT 185, AST 136, total protein 8.1, albumin 4.2, GGT 1542 PLAN Sedation with Fentanyl, Versed and Precedex Banana bag x2 QD Start mechanical ventilation IVF resuscitation with LR Insert OG tube, care by nursing OG tube at intermittent suctioning Insert Fontanez catheter for strict I/O Scheduled Accu-checks q6h while NPO Hypoglycemia protocol in place. 02/03/2020 Urine output significantly dropped overnight with total output <300 in 12h GFR drom from >60 to 30 FeNa 1.26%, not pre-renal Required high doses of sedation overnight--> started on propofol Central line placed Spiked a fever in the afternoon and started producing thicker and foul smelling sputum VS trend BP 87-126/52-105 Tmax 101.1 91-116x' >87% on FiO2 35-40% PLAN Continue sedation with Dexmedetomidine, Fentanyl and Versed for now and taper down as tolerated. Banana bag #2 today Swab penile discharge and send to lab for culture, Gonorrhea and Chlamydia Day of transfer 02/05/2020 -Urinary output continue to be poor. - GFR 13 - UOP <300 over last 12h - On dexmedetomidine, fentanyl and Versed for sedation. Trying to wean dexmedetomidine -Vital signs Blood pressures improved this morning ranging from 117/88 to 129/99 Afebrile overnight SPO2 is 99% on 70% O2 Mechanical ventilation ACVC Tidal volume 550 Respiratory rate 14 PEEP 10 FiO2 70% -Gram-positive cocci in sputum -likely staph aureus -Currently on vancomycin, Levaquin, and Unasyn -Chest x-ray shows improvement in infiltrates, consistent with aspiration Plan transfer to [facility] for higher level of care. Accepting physician Dr. Moreno. - Discharge Plan *PRESCRIPTION DRUG MONITORING PROGRAM REVIEWED*: No *COPY OF PRESCRIPTION DRUG MONITORING REPORT IN PATIENT RAJ: No Home Medications: Home Meds ClonazePAM [KlonoPIN] 0.5 mg PO DAILY 02/02/20 [History] Omeprazole 20 mg PO DAILY 02/02/20 [History] lisinopriL [Prinivil] 40 mg PO DAILY 02/02/20 [History] Oxygen Therapy Mode: Mechanical Ventilation Patient Handouts: Steps to Quit Smoking Forms: ED Department Discharge Referrals: Jean-Paul Proctor MD [Primary Care Provider] - - Discharge Summary/Plan Comment DC Time >30 min.: Yes Discharge Summary/Plan Comment: Transfer to [facility] in [place] ICU Accepting physician Dr. Moreno. - General Info Date of Service: 02/05/20 Admission Dx/Problem (Free Text: Admission Diagnosis/Problem Admission Diagnosis/Problem Alcohol withdrawal syndrome Subjective Update: INTERVAL HISTORY Overnight Events: - Urine output was increased after Lasix Vital Signs: BP trend: 81/58 - 129/66 HR trend: 80s Tmax: 97.7 SatO2: >92% Drips and IVF: Versed @ 15 Fentanyl @ 15 LR @75 Mechanical Ventilation: Intubation day: 02/02/2020 Mode: ACVC Vt: 550 FiO2: 80% RR: 20 PEEP: 10 New results: WBC 5.21 to 3.05 --> 4.12 Hb 12.4 down to 11-->10.3 Platelets 59 to 50-->59 Na 134 to 140-->138 K 2.8 to 4.1-->5.0 GFR down from 30 to 16-->13 PO4 up from 1.8 to 6.5-->7.4 Mg up down from 2.6 to 1.7-->2.0 ABGs Diet: NPO Lines and tubes: ETT 02/02/2020 Fontanez catheter 02/02/2020 OG tube 02/02/2020 - Patient Data Vitals - Most Recent: Last Vital Signs Temp 97.2 F 02/05/20 09:00 Pulse 81 02/05/20 06:00 Resp 28 H 02/05/20 09:00 BP 118/89 02/05/20 09:00 Pulse Ox 99 02/05/20 09:00 Weight - Most Recent: 91.49 kg I&O - Last 24 hours: Intake & Output 02/04/20 02/05/20 02/05/20 22:59 06:59 14:59 Intake Total 4828 1568 Output Total 105 180 75 Balance 4723 1388 -75 Lab Results - Last 24 hrs: Laboratory Results - last 24 hr 02/04/20 02/04/20 02/04/20 Range/Units 09:47 09:47 09:47 WBC 3.05 L (4.23-9.07) K/mm3 RBC 3.27 L (4.63-6.08) M/mm3 Hgb 11.0 L (13.7-17.5) gm/dl Hct 33.8 L (40.1-51.0) % MCV 103.4 H D (79.0-92.2) fl MCH 33.6 H (25.7-32.2) pg MCHC 32.5 (32.2-35.5) g/dl RDW Std Deviation 48.3 H (35.1-43.9) fL Plt Count 50 L (163-337) K/mm3 MPV 10.9 (9.4-12.3) fl Neut % (Auto) 64.5 (34.0-67.9) % Lymph % (Auto) 13.8 L (21.8-53.1) % [place] % (Auto) 19.7 H (5.3-12.2) % Eos % (Auto) 0.7 L (0.8-7.0) Baso % (Auto) 1.0 (0.1-1.2) % Neut # (Auto) 1.97 (1.78-5.38) K/mm3 Lymph # (Auto) 0.42 L (1.32-3.57) K/mm3 [place] # (Auto) 0.60 (0.30-0.82) K/mm3 Eos # (Auto) 0.02 L (0.04-0.54) K/mm3 Baso # (Auto) 0.03 (0.01-0.08) K/mm3 Manual Slide Review Abnormal smear PT (9.7-12.0) SECONDS INR APTT (22-31) SECONDS Puncture Site ABG pH (7.35-7.45) ABG pCO2 (35.0-45.0) mmHg ABG pO2 (80.0-100.0) mmHg ABG HCO3 (22.0-26.0) meq/L ABG O2 Saturation (96.0-97.0) % ABG Base Excess (-2-2.0) Kishore Test A-a Gradient mmHg O2 Delivery Device FiO2 (21.00-100.00) % Tidal Volume cc PEEP cmH20 Pressure Support cmH2O Sodium 139 (136-145) mEq/L Potassium 4.1 (3.5-5.1) mEq/L Chloride 103 (98-107) mEq/L Carbon Dioxide 20 L (21-32) mEq/L Anion Gap 20.1 H (5-15) BUN 23 H (7-18) mg/dL Creatinine 4.1 H D (0.7-1.3) mg/dL Est Cr Clr Drug Dosing 24.48 mL/min Estimated GFR (MDRD) 16 (>60) mL/min BUN/Creatinine Ratio 5.6 L (14-18) Glucose 76 (74-106) mg/dL POC Glucose (70-105) mg/dL Lactic Acid < 0.3 L (0.4-2.0) mmol/L Calcium 8.2 L (8.5-10.1) mg/dL Phosphorus 6.5 H (2.6-4.7) mg/dL Magnesium 1.7 L (1.8-2.4) mg/dl Total Bilirubin 1.3 H (0.2-1.0) mg/dL AST 57 H (15-37) U/L ALT 53 (16-63) U/L Alkaline Phosphatase 71 (46-116) U/L Total Protein 5.4 L (6.4-8.2) g/dl Albumin 2.3 L (3.4-5.0) g/dl Globulin 3.1 gm/dL Albumin/Globulin Ratio 0.7 L (1-2) Ketones (0.0-0.3) mM COVID-19 ([place]) (NEGATIVE) 02/04/20 02/04/20 02/04/20 Range/Units 09:47 10:29 10:33 WBC (4.23-9.07) K/mm3 RBC (4.63-6.08) M/mm3 Hgb (13.7-17.5) gm/dl Hct (40.1-51.0) % MCV (79.0-92.2) fl MCH (25.7-32.2) pg MCHC (32.2-35.5) g/dl RDW Std Deviation (35.1-43.9) fL Plt Count (163-337) K/mm3 MPV (9.4-12.3) fl Neut % (Auto) (34.0-67.9) % Lymph % (Auto) (21.8-53.1) % [place] % (Auto) (5.3-12.2) % Eos % (Auto) (0.8-7.0) Baso % (Auto) (0.1-1.2) % Neut # (Auto) (1.78-5.38) K/mm3 Lymph # (Auto) (1.32-3.57) K/mm3 [place] # (Auto) (0.30-0.82) K/mm3 Eos # (Auto) (0.04-0.54) K/mm3 Baso # (Auto) (0.01-0.08) K/mm3 Manual Slide Review PT (9.7-12.0) SECONDS INR APTT (22-31) SECONDS Puncture Site Rt radial ABG pH 7.14 L* (7.35-7.45) ABG pCO2 52.2 H (35.0-45.0) mmHg ABG pO2 85.0 (80.0-100.0) mmHg ABG HCO3 17.2 L (22.0-26.0) meq/L ABG O2 Saturation 94.6 L (96.0-97.0) % ABG Base Excess -11.4 L (-2-2.0) Kishore Test Positive A-a Gradient 563 mmHg O2 Delivery Device Ventilator FiO2 0.00 L (21.00-100.00) % Tidal Volume 400.0 cc PEEP 15.0 cmH20 Pressure Support 0.0 cmH2O Sodium (136-145) mEq/L Potassium (3.5-5.1) mEq/L Chloride (98-107) mEq/L Carbon Dioxide (21-32) mEq/L Anion Gap (5-15) BUN (7-18) mg/dL Creatinine (0.7-1.3) mg/dL Est Cr Clr Drug Dosing mL/min Estimated GFR (MDRD) (>60) mL/min BUN/Creatinine Ratio (14-18) Glucose (74-106) mg/dL POC Glucose 70 (70-105) mg/dL Lactic Acid (0.4-2.0) mmol/L Calcium (8.5-10.1) mg/dL Phosphorus (2.6-4.7) mg/dL Magnesium (1.8-2.4) mg/dl Total Bilirubin (0.2-1.0) mg/dL AST (15-37) U/L ALT (16-63) U/L Alkaline Phosphatase (46-116) U/L Total Protein (6.4-8.2) g/dl Albumin (3.4-5.0) g/dl Globulin gm/dL Albumin/Globulin Ratio (1-2) Ketones 4.91 (0.0-0.3) mM COVID-19 ([place]) (NEGATIVE) 02/04/20 02/04/20 02/04/20 Range/Units 10:45 13:55 16:29 WBC (4.23-9.07) K/mm3 RBC (4.63-6.08) M/mm3 Hgb (13.7-17.5) gm/dl Hct (40.1-51.0) % MCV (79.0-92.2) fl MCH (25.7-32.2) pg MCHC (32.2-35.5) g/dl RDW Std Deviation (35.1-43.9) fL Plt Count (163-337) K/mm3 MPV (9.4-12.3) fl Neut % (Auto) (34.0-67.9) % Lymph % (Auto) (21.8-53.1) % [place] % (Auto) (5.3-12.2) % Eos % (Auto) (0.8-7.0) Baso % (Auto) (0.1-1.2) % Neut # (Auto) (1.78-5.38) K/mm3 Lymph # (Auto) (1.32-3.57) K/mm3 [place] # (Auto) (0.30-0.82) K/mm3 Eos # (Auto) (0.04-0.54) K/mm3 Baso # (Auto) (0.01-0.08) K/mm3 Manual Slide Review PT (9.7-12.0) SECONDS INR APTT (22-31) SECONDS Puncture Site ABG pH (7.35-7.45) ABG pCO2 (35.0-45.0) mmHg ABG pO2 (80.0-100.0) mmHg ABG HCO3 (22.0-26.0) meq/L ABG O2 Saturation (96.0-97.0) % ABG Base Excess (-2-2.0) Kishore Test A-a Gradient mmHg O2 Delivery Device FiO2 (21.00-100.00) % Tidal Volume cc PEEP cmH20 Pressure Support cmH2O Sodium (136-145) mEq/L Potassium (3.5-5.1) mEq/L Chloride (98-107) mEq/L Carbon Dioxide (21-32) mEq/L Anion Gap (5-15) BUN (7-18) mg/dL Creatinine (0.7-1.3) mg/dL Est Cr Clr Drug Dosing mL/min Estimated GFR (MDRD) (>60) mL/min BUN/Creatinine Ratio (14-18) Glucose (74-106) mg/dL POC Glucose 158 H 99 95 (70-105) mg/dL Lactic Acid (0.4-2.0) mmol/L Calcium (8.5-10.1) mg/dL Phosphorus (2.6-4.7) mg/dL Magnesium (1.8-2.4) mg/dl Total Bilirubin (0.2-1.0) mg/dL AST (15-37) U/L ALT (16-63) U/L Alkaline Phosphatase (46-116) U/L Total Protein (6.4-8.2) g/dl Albumin (3.4-5.0) g/dl Globulin gm/dL Albumin/Globulin Ratio (1-2) Ketones (0.0-0.3) mM COVID-19 ([place]) (NEGATIVE) 02/04/20 02/04/20 02/04/20 Range/Units 18:12 20:05 20:24 WBC (4.23-9.07) K/mm3 RBC (4.63-6.08) M/mm3 Hgb (13.7-17.5) gm/dl Hct (40.1-51.0) % MCV (79.0-92.2) fl MCH (25.7-32.2) pg MCHC (32.2-35.5) g/dl RDW Std Deviation (35.1-43.9) fL Plt Count (163-337) K/mm3 MPV (9.4-12.3) fl Neut % (Auto) (34.0-67.9) % Lymph % (Auto) (21.8-53.1) % [place] % (Auto) (5.3-12.2) % Eos % (Auto) (0.8-7.0) Baso % (Auto) (0.1-1.2) % Neut # (Auto) (1.78-5.38) K/mm3 Lymph # (Auto) (1.32-3.57) K/mm3 [place] # (Auto) (0.30-0.82) K/mm3 Eos # (Auto) (0.04-0.54) K/mm3 Baso # (Auto) (0.01-0.08) K/mm3 Manual Slide Review PT (9.7-12.0) SECONDS INR APTT (22-31) SECONDS Puncture Site Rt radial ABG pH 7.16 L* (7.35-7.45) ABG pCO2 56.1 H (35.0-45.0) mmHg ABG pO2 122.0 H (80.0-100.0) mmHg ABG HCO3 19.1 L (22.0-26.0) meq/L ABG O2 Saturation 98.2 H (96.0-97.0) % ABG Base Excess -9.3 L (-2-2.0) Kishore Test Positive A-a Gradient 307 mmHg O2 Delivery Device Ventilator FiO2 70.00 (21.00-100.00) % Tidal Volume 400.0 cc PEEP 10.0 cmH20 Pressure Support cmH2O Sodium (136-145) mEq/L Potassium (3.5-5.1) mEq/L Chloride (98-107) mEq/L Carbon Dioxide (21-32) mEq/L Anion Gap (5-15) BUN (7-18) mg/dL Creatinine (0.7-1.3) mg/dL Est Cr Clr Drug Dosing mL/min Estimated GFR (MDRD) (>60) mL/min BUN/Creatinine Ratio (14-18) Glucose (74-106) mg/dL POC Glucose 100 (70-105) mg/dL Lactic Acid (0.4-2.0) mmol/L Calcium (8.5-10.1) mg/dL Phosphorus (2.6-4.7) mg/dL Magnesium (1.8-2.4) mg/dl Total Bilirubin (0.2-1.0) mg/dL AST (15-37) U/L ALT (16-63) U/L Alkaline Phosphatase (46-116) U/L Total Protein (6.4-8.2) g/dl Albumin (3.4-5.0) g/dl Globulin gm/dL Albumin/Globulin Ratio (1-2) Ketones (0.0-0.3) mM COVID-19 ([place]) Negative (NEGATIVE) 02/04/20 02/04/20 02/05/20 Range/Units 21:55 21:55 00:13 WBC (4.23-9.07) K/mm3 RBC (4.63-6.08) M/mm3 Hgb (13.7-17.5) gm/dl Hct (40.1-51.0) % MCV (79.0-92.2) fl MCH (25.7-32.2) pg MCHC (32.2-35.5) g/dl RDW Std Deviation (35.1-43.9) fL Plt Count (163-337) K/mm3 MPV (9.4-12.3) fl Neut % (Auto) (34.0-67.9) % Lymph % (Auto) (21.8-53.1) % [place] % (Auto) (5.3-12.2) % Eos % (Auto) (0.8-7.0) Baso % (Auto) (0.1-1.2) % Neut # (Auto) (1.78-5.38) K/mm3 Lymph # (Auto) (1.32-3.57) K/mm3 [place] # (Auto) (0.30-0.82) K/mm3 Eos # (Auto) (0.04-0.54) K/mm3 Baso # (Auto) (0.01-0.08) K/mm3 Manual Slide Review PT (9.7-12.0) SECONDS INR APTT (22-31) SECONDS Puncture Site ABG pH (7.35-7.45) ABG pCO2 (35.0-45.0) mmHg ABG pO2 (80.0-100.0) mmHg ABG HCO3 (22.0-26.0) meq/L ABG O2 Saturation (96.0-97.0) % ABG Base Excess (-2-2.0) Kishore Test A-a Gradient mmHg O2 Delivery Device FiO2 (21.00-100.00) % Tidal Volume cc PEEP cmH20 Pressure Support cmH2O Sodium (136-145) mEq/L Potassium (3.5-5.1) mEq/L Chloride (98-107) mEq/L Carbon Dioxide (21-32) mEq/L Anion Gap (5-15) BUN (7-18) mg/dL Creatinine (0.7-1.3) mg/dL Est Cr Clr Drug Dosing mL/min Estimated GFR (MDRD) (>60) mL/min BUN/Creatinine Ratio (14-18) Glucose (74-106) mg/dL POC Glucose 121 H (70-105) mg/dL Lactic Acid 1.0 (0.4-2.0) mmol/L Calcium (8.5-10.1) mg/dL Phosphorus (2.6-4.7) mg/dL Magnesium (1.8-2.4) mg/dl Total Bilirubin (0.2-1.0) mg/dL AST (15-37) U/L ALT (16-63) U/L Alkaline Phosphatase (46-116) U/L Total Protein (6.4-8.2) g/dl Albumin (3.4-5.0) g/dl Globulin gm/dL Albumin/Globulin Ratio (1-2) Ketones 2.79 (0.0-0.3) mM COVID-19 ([place]) (NEGATIVE) 02/05/20 02/05/20 02/05/20 Range/Units 05:22 05:40 06:30 WBC 4.12 L (4.23-9.07) K/mm3 RBC 3.08 L (4.63-6.08) M/mm3 Hgb 10.3 L (13.7-17.5) gm/dl Hct 31.9 L (40.1-51.0) % MCV 103.6 H (79.0-92.2) fl MCH 33.4 H (25.7-32.2) pg MCHC 32.3 (32.2-35.5) g/dl RDW Std Deviation 48.8 H (35.1-43.9) fL Plt Count 59 L (163-337) K/mm3 MPV 10.5 (9.4-12.3) fl Neut % (Auto) 62.7 (34.0-67.9) % Lymph % (Auto) 10.4 L (21.8-53.1) % [place] % (Auto) 24.0 H (5.3-12.2) % Eos % (Auto) 0.7 L (0.8-7.0) Baso % (Auto) 1.0 (0.1-1.2) % Neut # (Auto) 2.58 (1.78-5.38) K/mm3 Lymph # (Auto) 0.43 L (1.32-3.57) K/mm3 [place] # (Auto) 0.99 H (0.30-0.82) K/mm3 Eos # (Auto) 0.03 L (0.04-0.54) K/mm3 Baso # (Auto) 0.04 (0.01-0.08) K/mm3 Manual Slide Review Abnormal smear PT (9.7-12.0) SECONDS INR APTT (22-31) SECONDS Puncture Site Rt radial ABG pH 7.18 L* (7.35-7.45) ABG pCO2 52.9 H (35.0-45.0) mmHg ABG pO2 131.0 H (80.0-100.0) mmHg ABG HCO3 19.0 L (22.0-26.0) meq/L ABG O2 Saturation 98.7 H (96.0-97.0) % ABG Base Excess -8.9 L (-2-2.0) Kishore Test Positive A-a Gradient 302 mmHg O2 Delivery Device Ventilator FiO2 70.00 (21.00-100.00) % Tidal Volume 400.0 cc PEEP 10.0 cmH20 Pressure Support cmH2O Sodium (136-145) mEq/L Potassium (3.5-5.1) mEq/L Chloride (98-107) mEq/L Carbon Dioxide (21-32) mEq/L Anion Gap (5-15) BUN (7-18) mg/dL Creatinine (0.7-1.3) mg/dL Est Cr Clr Drug Dosing mL/min Estimated GFR (MDRD) (>60) mL/min BUN/Creatinine Ratio (14-18) Glucose (74-106) mg/dL POC Glucose 139 H (70-105) mg/dL Lactic Acid (0.4-2.0) mmol/L Calcium (8.5-10.1) mg/dL Phosphorus (2.6-4.7) mg/dL Magnesium (1.8-2.4) mg/dl Total Bilirubin (0.2-1.0) mg/dL AST (15-37) U/L ALT (16-63) U/L Alkaline Phosphatase (46-116) U/L Total Protein (6.4-8.2) g/dl Albumin (3.4-5.0) g/dl Globulin gm/dL Albumin/Globulin Ratio (1-2) Ketones (0.0-0.3) mM COVID-19 ([place]) (NEGATIVE) 02/05/20 02/05/20 02/05/20 Range/Units 06:30 06:30 06:30 WBC (4.23-9.07) K/mm3 RBC (4.63-6.08) M/mm3 Hgb (13.7-17.5) gm/dl Hct (40.1-51.0) % MCV (79.0-92.2) fl MCH (25.7-32.2) pg MCHC (32.2-35.5) g/dl RDW Std Deviation (35.1-43.9) fL Plt Count (163-337) K/mm3 MPV (9.4-12.3) fl Neut % (Auto) (34.0-67.9) % Lymph % (Auto) (21.8-53.1) % [place] % (Auto) (5.3-12.2) % Eos % (Auto) (0.8-7.0) Baso % (Auto) (0.1-1.2) % Neut # (Auto) (1.78-5.38) K/mm3 Lymph # (Auto) (1.32-3.57) K/mm3 [place] # (Auto) (0.30-0.82) K/mm3 Eos # (Auto) (0.04-0.54) K/mm3 Baso # (Auto) (0.01-0.08) K/mm3 Manual Slide Review PT 11.5 (9.7-12.0) SECONDS INR 1.08 APTT 32 H (22-31) SECONDS Puncture Site ABG pH (7.35-7.45) ABG pCO2 (35.0-45.0) mmHg ABG pO2 (80.0-100.0) mmHg ABG HCO3 (22.0-26.0) meq/L ABG O2 Saturation (96.0-97.0) % ABG Base Excess (-2-2.0) Kishore Test A-a Gradient mmHg O2 Delivery Device FiO2 (21.00-100.00) % Tidal Volume cc PEEP cmH20 Pressure Support cmH2O Sodium 138 (136-145) mEq/L Potassium 5.0 (3.5-5.1) mEq/L Chloride 104 (98-107) mEq/L Carbon Dioxide 20 L (21-32) mEq/L Anion Gap 19.0 H (5-15) BUN 31 H (7-18) mg/dL Creatinine 4.9 H (0.7-1.3) mg/dL Est Cr Clr Drug Dosing 20.48 mL/min Estimated GFR (MDRD) 13 (>60) mL/min BUN/Creatinine Ratio 6.3 L (14-18) Glucose 145 H (74-106) mg/dL POC Glucose (70-105) mg/dL Lactic Acid (0.4-2.0) mmol/L Calcium 8.3 L (8.5-10.1) mg/dL Phosphorus 7.4 H (2.6-4.7) mg/dL Magnesium 2.0 (1.8-2.4) mg/dl Total Bilirubin 1.1 H (0.2-1.0) mg/dL AST 43 H (15-37) U/L ALT 41 (16-63) U/L Alkaline Phosphatase 62 (46-116) U/L Total Protein 5.3 L (6.4-8.2) g/dl Albumin 1.9 L (3.4-5.0) g/dl Globulin 3.4 gm/dL Albumin/Globulin Ratio 0.6 L (1-2) Ketones 1.27 (0.0-0.3) mM COVID-19 ([place]) (NEGATIVE) 02/05/20 02/05/20 Range/Units 06:30 07:20 WBC (4.23-9.07) K/mm3 RBC (4.63-6.08) M/mm3 Hgb (13.7-17.5) gm/dl Hct (40.1-51.0) % MCV (79.0-92.2) fl MCH (25.7-32.2) pg MCHC (32.2-35.5) g/dl RDW Std Deviation (35.1-43.9) fL Plt Count (163-337) K/mm3 MPV (9.4-12.3) fl Neut % (Auto) (34.0-67.9) % Lymph % (Auto) (21.8-53.1) % [place] % (Auto) (5.3-12.2) % Eos % (Auto) (0.8-7.0) Baso % (Auto) (0.1-1.2) % Neut # (Auto) (1.78-5.38) K/mm3 Lymph # (Auto) (1.32-3.57) K/mm3 [place] # (Auto) (0.30-0.82) K/mm3 Eos # (Auto) (0.04-0.54) K/mm3 Baso # (Auto) (0.01-0.08) K/mm3 Manual Slide Review PT (9.7-12.0) SECONDS INR APTT (22-31) SECONDS Puncture Site Rt radial ABG pH 7.26 L (7.35-7.45) ABG pCO2 45.6 H (35.0-45.0) mmHg ABG pO2 134.0 H (80.0-100.0) mmHg ABG HCO3 19.8 L (22.0-26.0) meq/L ABG O2 Saturation 97.1 H (96.0-97.0) % ABG Base Excess -6.8 L (-2-2.0) Kishore Test A-a Gradient 308 mmHg O2 Delivery Device Ventilator FiO2 70.00 (21.00-100.00) % Tidal Volume 450.0 cc PEEP 10.0 cmH20 Pressure Support cmH2O Sodium (136-145) mEq/L Potassium (3.5-5.1) mEq/L Chloride (98-107) mEq/L Carbon Dioxide (21-32) mEq/L Anion Gap (5-15) BUN (7-18) mg/dL Creatinine (0.7-1.3) mg/dL Est Cr Clr Drug Dosing mL/min Estimated GFR (MDRD) (>60) mL/min BUN/Creatinine Ratio (14-18) Glucose (74-106) mg/dL POC Glucose (70-105) mg/dL Lactic Acid 1.0 (0.4-2.0) mmol/L Calcium (8.5-10.1) mg/dL Phosphorus (2.6-4.7) mg/dL Magnesium (1.8-2.4) mg/dl Total Bilirubin (0.2-1.0) mg/dL AST (15-37) U/L ALT (16-63) U/L Alkaline Phosphatase (46-116) U/L Total Protein (6.4-8.2) g/dl Albumin (3.4-5.0) g/dl Globulin gm/dL Albumin/Globulin Ratio (1-2) Ketones (0.0-0.3) mM COVID-19 ([place]) (NEGATIVE) LUIS FERNANDO Results - Last 24 hrs: Microbiology 02/03/20 20:15 Gram Stain - Final Sputum - Induced Sputum Culture - Preliminary Gram Positive Cocci 02/03/20 20:00 Aerobic Blood Culture - Preliminary Blood - Venous NO GROWTH AFTER 1 DAY Anaerobic Blood Culture - Preliminary NO GROWTH AFTER 1 DAY 02/03/20 20:10 Aerobic Blood Culture - Preliminary Blood - Venous - Lab Draw NO GROWTH AFTER 1 DAY Anaerobic Blood Culture - Preliminary NO GROWTH AFTER 1 DAY Med Orders - Current: Current Medications Acetaminophen (Tylenol) 650 mg RECTAL Q6H PRN PRN Reason: Fever Last Admin: 02/04/20 13:01 Dose: 650 mg Documented by: Dextrose/Water (Dextrose 50% In Water) 50 ml IVPUSH ASDIRECTED PRN PRN Reason: Hypoglycemia Last Admin: 02/04/20 10:37 Dose: 50 ml Documented by: Midazolam HCl 100 mg/ Sodium (Chloride) 100 mls @ 1.361 mls/hr IV TITRATE [facility]; Protocol Last Admin: 02/05/20 06:53 Dose: 0.22 mg/kg/hr, 15 mls/hr Documented by: Fentanyl 2,500 mcg/ Sodium (Chloride) 250 mls @ 6.804 mls/hr IV TITRATE [facility]; Protocol Last Titration: 02/05/20 08:25 Dose: 12 mcg/kg/hr, 81.647 mls/hr Documented by: Propofol (Diprivan 100 Ml) 100 mls @ 2.454 mls/hr IV TITRATE [facility]U; Protocol Last Admin: 02/04/20 05:16 Dose: 50 mcg/kg/min, 24.54 mls/hr Documented by: Ampicillin Sodium/Sulbactam (Sodium 3 gm/ Sodium Chloride) 100 mls @ 200 mls/hr IV Q6H [facility] Last Admin: 02/05/20 09:23 Dose: 200 mls/hr Documented by: dexMEDEtomidine in dextrose 5% (400 mcg/ Premix) 100 mls @ 4.137 mls/hr IV TITRATE [facility]U; Protocol Last Infusion: 02/05/20 06:24 Dose: 0.4 mcg/kg/hr, 8.274 mls/hr Documented by: Levofloxacin/Dextrose 750 mg/ (Premix) 150 mls @ 100 mls/hr IV Q48H [facility] Last Admin: 02/04/20 12:58 Dose: 100 mls/hr Documented by: Vancomycin HCl 1.25 gm/ Sodium (Chloride) 250 mls @ 250 mls/hr IV Q24H [facility] Dextrose/Lactated Ringer's (Dextrose 5%-Lactated Ringers) 1,000 mls @ 75 mls/hr IV ASDIRECTED [facility] Last Admin: 02/04/20 23:03 Dose: 75 mls/hr Documented by: Ondansetron HCl (Zofran) 4 mg IV Q6H PRN PRN Reason: Nausea/Vomiting Last Admin: 02/02/20 15:38 Dose: 4 mg Documented by: Vancomycin HCl (Pharmacy To Dose - Vancomycin) 1 dose .XX ASDIRECTED PRN PRN Reason: RX TO DOSE VANCO Discontinued Medications Cyanocobalamin (Vitamin B12) 1,000 mcg IM ONETIME ONE Stop: 02/02/20 12:23 Last Admin: 02/02/20 13:38 Dose: 1,000 mcg Documented by: Etomidate (Amidate) 40 mg IVPUSH .STK-MED ONE Stop: 02/02/20 16:01 Folic Acid (Folic Acid) 1 mg IV ONETIME ONE Stop: 02/03/20 12:23 Furosemide (Lasix) 20 mg IVPUSH NOW ONE Stop: 02/03/20 00:49 Last Admin: 02/03/20 01:04 Dose: 20 mg Documented by: Furosemide (Lasix) 60 mg IVPUSH NOW ONE Stop: 02/03/20 19:35 Last Admin: 02/03/20 20:21 Dose: 60 mg Documented by: Furosemide (Lasix) 60 mg IVPUSH NOW ONE Stop: 02/05/20 05:59 Last Admin: 02/05/20 06:20 Dose: 60 mg Documented by: Hydralazine HCl (Apresoline) 10 mg IVPUSH ONETIME ONE Stop: 02/02/20 14:35 Last Admin: 02/02/20 14:48 Dose: 10 mg Documented by: Lactated Ringer's (Ringers, Lactated) 1,000 mls @ 999 mls/hr IV .BOLUS ONE Stop: 02/02/20 12:48 Last Admin: 02/02/20 11:55 Dose: 999 mls/hr Documented by: Lactated Ringer's (Ringers, Lactated) 1,000 mls @ 150 mls/hr IV ASDIRECTED [facility] Last Admin: 02/03/20 03:37 Dose: 150 mls/hr Documented by: Thiamine HCl 1,000 mg/Magnesium Sulfate 4 gm/ Folic Acid 1 mg/ Dextrose/Sodium Chloride 1,018.2 mls @ 125 mls/hr IV ASDIRECTED [facility] Last Admin: 02/02/20 14:21 Dose: 125 mls/hr Documented by: Lactated Ringer's (Ringers, Lactated) 1,000 mls @ 150 mls/hr IV ASDIRECTED [facility] Last Admin: 02/03/20 10:10 Dose: 150 mls/hr Documented by: dexMEDEtomidine in dextrose 5% (400 mcg/ Premix) 100 mls @ 3.402 mls/hr IV .Q24H [facility]; Protocol Last Admin: 02/03/20 16:54 Dose: Not Given Documented by: Propofol (Diprivan 100 Ml) Confirm Administered Dose 100 mls @ as directed .ROUTE .STK-MED ONE Stop: 02/02/20 16:49 Last Admin: 02/02/20 17:34 Dose: 2 mls/hr Documented by: Midazolam HCl 100 mg/ Sodium (Chloride) 100 mls @ 1.361 mls/hr IV TITRATE [facility]; Protocol Fentanyl 2,500 mcg/ Sodium (Chloride) 250 mls @ 6.804 mls/hr IV TITRATE [facility]; Protocol Propofol (Diprivan 100 Ml) Confirm Administered Dose 100 mls @ as directed .ROUTE .STK-MED ONE Stop: 02/03/20 03:15 Last Admin: 02/03/20 03:43 Dose: Not Given Documented by: Sodium Chloride (Normal Saline) 1,000 mls @ 999 mls/hr IV ONETIME ONE Stop: 02/03/20 07:53 Last Admin: 02/03/20 07:30 Dose: 999 mls/hr Documented by: Potassium Phosphate 60 mmole/ (Sodium Chloride) 1,020 mls @ 102 mls/hr IV ONETIME ONE Stop: 02/03/20 20:59 Last Admin: 02/03/20 12:14 Dose: 102 mls/hr Documented by: Lactated Ringer's (Ringers, Lactated) 1,000 mls @ 999 mls/hr IV .BOLUS ONE Stop: 02/03/20 12:00 Last Admin: 02/03/20 11:19 Dose: 999 mls/hr Documented by: Lactated Ringer's (Ringers, Lactated) 1,000 mls @ 999 mls/hr IV .BOLUS ONE Stop: 02/03/20 13:00 Last Admin: 02/03/20 12:25 Dose: 999 mls/hr Documented by: Lactated Ringer's (Ringers, Lactated) 1,000 mls @ 250 mls/hr IV ASDIRECTED [facility] Last Admin: 02/04/20 22:36 Dose: 250 mls/hr Documented by: Ceftriaxone Sodium 1 gm/ (Sodium Chloride) 100 mls @ 200 mls/hr IV ONETIME ONE Stop: 02/03/20 22:29 Last Admin: 02/03/20 21:37 Dose: 200 mls/hr Documented by: Azithromycin 1,000 mg/ Sodium (Chloride) 500 mls @ 250 mls/hr IV ONETIME ONE Stop: 02/03/20 23:59 Last Admin: 02/03/20 21:37 Dose: 250 mls/hr Documented by: Fosphenytoin Sodium 1,500 mg. (pe/ Sodium Chloride) 130 mls @ 260 mls/hr IV ONETIME ONE Stop: 02/04/20 10:59 Last Admin: 02/04/20 10:28 Dose: 260 mls/hr Documented by: Levetiracetam 1,000 mg/ Sodium (Chloride) 110 mls @ 400 mls/hr IV ONETIME ONE Stop: 02/04/20 10:28 Last Admin: 02/04/20 10:16 Dose: 400 mls/hr Documented by: Magnesium Sulfate 2 gm/ Premix 50 mls @ 25 mls/hr IV ONETIME ONE Stop: 02/04/20 13:11 Last Admin: 02/04/20 12:55 Dose: 25 mls/hr Documented by: Vancomycin HCl 1 gm/ Sodium (Chloride) 250 mls @ 250 mls/hr IV Q12H [facility] Last Admin: 02/04/20 13:31 Dose: Not Given Documented by: Vancomycin HCl 1.5 gm/ Sodium (Chloride) 500 mls @ 250 mls/hr IV ONETIME ONE Stop: 02/04/20 14:29 Last Admin: 02/04/20 12:47 Dose: 250 mls/hr Documented by: Labetalol HCl (Normodyne) Confirm Administered Dose 100 mg .ROUTE .STK-MED ONE Stop: 02/02/20 16:50 Last Admin: 02/02/20 17:41 Dose: 10 mg Documented by: Labetalol HCl (Normodyne) Confirm Administered Dose 100 mg .ROUTE .STK-MED ONE Stop: 02/04/20 10:31 Last Admin: 02/04/20 10:51 Dose: Not Given Documented by: Labetalol HCl (Normodyne) 10 mg IVPUSH ONETIME ONE; Protocol Stop: 02/04/20 10:34 Last Admin: 02/04/20 10:33 Dose: 10 mg Documented by: Lorazepam (Ativan) 2 mg IVPUSH ONETIME ONE Stop: 02/02/20 11:49 Last Admin: 02/02/20 11:55 Dose: 2 mg Documented by: Lorazepam (Ativan) 1 mg IVPUSH ONETIME ONE Stop: 02/02/20 12:17 Last Admin: 02/02/20 12:24 Dose: 1 mg Documented by: Lorazepam (Ativan) Confirm Administered Dose 2 mg .ROUTE .STK-MED ONE Stop: 02/02/20 13:01 Last Admin: 02/02/20 13:40 Dose: Not Given Documented by: Lorazepam (Ativan) 0 mg IV ASDIRECTED [facility]; Protocol Last Admin: 02/03/20 03:04 Dose: 2 mg Documented by: Lorazepam (Ativan) 0 mg PO ASDIRECTED [facility]; Protocol Lorazepam (Ativan) 2 mg IVPUSH ONETIME ONE Stop: 02/02/20 13:10 Last Admin: 02/02/20 13:37 Dose: 2 mg Documented by: Midazolam HCl (Versed 5 Mg/Ml) 20 mg IV ONETIME ONE Stop: 02/04/20 10:11 Last Admin: 02/04/20 10:13 Dose: 20 mg Documented by: Propofol (Diprivan 20 Ml) 400 mg .ROUTE .STK-MED ONE Stop: 02/02/20 16:01 Sodium Bicarbonate (Sodium Bicarbonate 8.4%) 50 meq IVPUSH ONETIME ONE Stop: 02/05/20 06:16 Last Admin: 02/05/20 06:26 Dose: 50 meq Documented by: Succinylcholine Chloride (Quelicin) 200 mg .ROUTE .STK-MED ONE Stop: 02/02/20 16:01 Thiamine HCl (Vitamin B-1) 100 mg IVPUSH ONETIME ONE Stop: 02/02/20 12:24 Last Admin: 02/02/20 13:39 Dose: 100 mg Documented by: - Exam Quality Assessment: Reports: Central Line/PICC, Urine Catheter General: Reports: Sedated HEENT: Reports: Pupils Equal Lungs: Reports: Clear to Auscultation, Normal Respiratory Effort Cardiovascular: Reports: Regular Rate, Regular Rhythm GI/Abdominal Exam: Soft, Non-Tender, No Distention Extremities: Normal Inspection, Normal Range of Motion, No Pedal Edema, Normal Capillary Refill Skin: Reports: Warm, Dry, Intact
[2020-02-05] MEDS ORDERED: Pantoprazole 40 MG Vial IVPUSH SCH (10:00)
[2020-02-05] MEDS: Dextrose 5%-Lactated Ringers 1,000 ML IV SCH (12:19)
[2020-02-05 13:28] VITALS: BP 124/97
[2020-02-05] MEDS ORDERED: Ampicillin/Sulbactam Na 3 GM in Sodium Chloride 0.9% 100 ML IV SCH (21:00)
== END 2020-02-05 13:02 | DRG 896 ==
LOC: JD.ED 11:24 → JD.ICU 13:01
PROVIDERS: ADMIT Internal Medicine; ATTEND Internal Medicine
PROC: 5A1945Z Respiratory Ventilation, 24-96 Consecutive Hours (ICD-10-PCS; 2020-02-02)
PROC: 0BH17EZ Insertion of Endotracheal Airway into Trachea, Via Natural or Artificial Opening (ICD-10-PCS; 2020-02-02)
PROC: 02HV33Z Insertion of Infusion Device into Superior Vena Cava, Percutaneous Approach (ICD-10-PCS; principal; 2020-02-03)
DX: F10.231 Alcohol dependence with withdrawal delirium (principal); J69.0 Pneumonitis due to inhalation of food and vomit; E87.2 Acidosis; N17.9 Acute kidney failure, unspecified; I16.1 Hypertensive emergency; R56.9 Unspecified convulsions; Z20.828 Contact with and (suspected) exposure to other viral communicable diseases; D69.6 Thrombocytopenia, unspecified; R34 Anuria and oliguria; I10 Essential (primary) hypertension; F41.9 Anxiety disorder, unspecified; F17.210 Nicotine dependence, cigarettes, uncomplicated; F32.9 Major depressive disorder, single episode, unspecified; E87.6 Hypokalemia; R22.1 Localized swelling, mass and lump, neck; R36.9 Urethral discharge, unspecified; Z79.899 Other long term (current) drug therapy
CPT/HCPCS: 36415; 36600; 51798; 70450; 70450-26; 70490; 70490-26; 71045; 71045-26; 80048; 80053; 80306; 80307; 81001; 82009; 82570; 82803; 82962; 82977; 83605; 83735; 84100; 84145; 84300; 84443; 85025; 85610; 85730; 87040; 87070; 87077; 87186; 87205; 94003; 96361; 96374; 99285; 99285-25; A9270-GY; C9113; J0295; J0330; J0360; J0456; J0696; J1940; J1953; J1956; J2060; J2250; J2405; J2704; J3010; J3360; J3370; J3411; J3420; J3475; J3490; J7030; J7040; J7042; J7050; J7120; J7121; Q2009; U0002

== ENCOUNTER 2022-11-25 11:14 | Emergency (ER) | payer BC, MEDICAID, OTHER ==
[2022-11-25] MEDS ORDERED: LORazepam 2 MG/ML SDV IVPUSH ONE (11:32)
[2022-11-25] MEDS ORDERED: Sodium Chloride 0.9% 1,000 ML IV ONE ×4 (11:32→22:14)
[2022-11-25] MEDS ORDERED: Thiamine 100 MG Tab PO ONE (11:32)
[2022-11-25] MEDS ORDERED: Metoclopramide 10 MG/2 ML SDV IVPUSH ONE (11:32)
[2022-11-25] MEDS ORDERED: Folic Acid 1 MG Tab PO ONE (11:32)
[2022-11-25] MEDS ORDERED: Sodium Chloride 0.9% 10 ML Syringe FLUSH PRN (11:32)
[2022-11-25 11:50] LABS: BASOPHILS ABSOLUTE AUTO 0.03 K/mm3 (0.01-0.08); BASOPHILS PERCENT AUTO 0.5 % (0.1-1.2); EOSINOPHILS ABSOLUTE AUTO 0.04 K/mm3 (0.04-0.54); EOSINOPHILS PERCENT AUTO 0.7 (0.8-7.0); HEMATOCRIT 40.2 % (40.1-51.0); HEMOGLOBIN 13.9 gm/dl (13.7-17.5); IMMATURE GRAN ABSOLUTE AUTO 0.01 K/mm3 (0.00-0.10); IMMATURE GRAN PERCENT AUTO 0.2 % (<=1.0); LYMPHOCYTES ABSOLUTE AUTO 2.33 K/mm3 (1.32-3.57); LYMPHOCYTES PERCENT AUTO 39.2 % (21.8-53.1); MEAN CORPUSCULAR HGB CONC 34.6 g/dl (32.2-35.5); MEAN CORPUSCULAR VOLUME 92.6 fl (79.0-92.2); MEAN PLATELET VOLUME 10.4 fl (9.4-12.3); MONOCYTES ABSOLUTE AUTO 0.98 K/mm3 (0.30-0.82); MONOCYTES PERCENT AUTO 16.5 % (5.3-12.2); NEUTROPHILS ABSOLUTE AUTO 2.56 K/mm3 (1.78-5.38); NEUTROPHILS PERCENT AUTO 42.9 % (34.0-67.9); PLATELET COUNT,PLT 97 K/mm3 (163-337); RED BLOOD CELL COUNT 4.34 M/mm3 (4.63-6.08); WHITE BLOOD CELL COUNT,WBC 5.95 K/mm3 (4.23-9.07)
[2022-11-25 12:09] LABS: PROTHROMBIN TIME 10.7 SECONDS (9.7-12.0)
[2022-11-25 12:14] LABS: A/G RATIO 0.9 (1-2); ALBUMIN 3.6 g/dl (3.4-5.0); ANION GAP 19.4 (5-15); BILIRUBIN TOTAL 0.5 mg/dL (0.2-1.0); BUN/CREATININE RATIO 8.9 (14-18); CALCIUM 8.8 mg/dL (8.5-10.1); CREATININE 0.9 mg/dL (0.7-1.3); EST CRCL DRUG DOSING (CG) 109.27 mL/min; ETHANOL BLOOD MEDICAL 0.36 gm% (0.00); MAGNESIUM 1.4 mg/dL (1.8-2.4); PROTEIN TOTAL,TP 7.6 g/dl (6.4-8.2)
[2022-11-25 12:20] LABS: POTASSIUM,K 2.4 mEq/L (3.5-5.1)
[2022-11-25] MEDS ORDERED: Magnesium Sulfate/Water 2 GM in Premix Bag 1 BAG IV ONE (12:40)
[2022-11-25] MEDS ORDERED: Potassium Chloride 20 MEQ Tab.ER PO ONE (12:41)
[2022-11-25 12:59] LABS: SLIDE REVIEW ABNORMAL SMEAR
[2022-11-25] MEDS: Potassium Chloride 10 MEQ in Premix Bag 1 BAG IV SCH ×4 (13:00→16:32)
[2022-11-25] MEDS: LORazepam 2 MG/ML SDV IVPUSH SCH ×5 (13:53→21:54)
[2022-11-25] MEDS ORDERED: Ondansetron 4 MG/2 ML SDV IVPUSH ONE (14:49)
[2022-11-25 15:51] LABS: CORONAVIRUS COVID-19 NAA NEGATIVE (NEGATIVE); INFLUENZA A NAA NEGATIVE (NEGATIVE); RESPIRATORY SYNCYTIAL VIR NAA NEGATIVE (NEGATIVE)
[2022-11-25] MEDS: Metoclopramide 10 MG/2 ML SDV IVPUSH PRN (19:50)
[2022-11-26 00:14] LABS: BARBITURATE SCREEN,URINE NEGATIVE (CUTOFF=200); BENZODIAZEPINES SCREEN,URINE PRESUMPTIVE POSITIVE (CUTOFF=150); BUPRENORPHINE SCREEN,URINE NEGATIVE (CUTOFF=10); METHADONE SCREEN, URINE NEGATIVE (CUT0FF=200); METHAMPHETAMINES SCREEN, URINE NEGATIVE (CUTOFF=500); OXYCODONE SCREEN,URINE NEGATIVE (CUT0FF=100); PROPOXYPHENE SCREEN,URINE NEGATIVE (CUTOFF=300); THC SCREEN,URINE 20 NG/ML NEGATIVE (CUTOFF=50)
[2022-11-26] MEDS: LORazepam 2 MG/ML SDV IVPUSH SCH ×9 (00:16→16:19)
[2022-11-26 00:18] LABS: AMPHETAMINES SCREEN, URINE NEGATIVE (CUTOFF=500)
[2022-11-26] MEDS: Ondansetron 4 MG/2 ML SDV IVPUSH SCH ×2 (05:12→07:36)
[2022-11-26 05:19] VITALS: PULSE 74
[2022-11-26 05:36] LABS: ANION GAP 12.3 (5-15); BUN/CREATININE RATIO 12.2 (14-18); CALCIUM 8.6 mg/dL (8.5-10.1); CREATININE 0.9 mg/dL (0.7-1.3); EST CRCL DRUG DOSING (CG) 109.27 mL/min; MAGNESIUM 1.2 mg/dL (1.8-2.4); POTASSIUM,K 3.3 mEq/L (3.5-5.1)
[2022-11-26] MEDS: Metoclopramide 10 MG/2 ML SDV IVPUSH PRN (09:54)
[2022-11-26 10:03] VITALS: BP 146/94
[2022-11-26] MEDS ORDERED: Topiramate 25 MG Tab PO SCH (11:30)
[2022-11-26] MEDS ORDERED: Lactated Ringers 1,000 ML IV ONE (12:01)
[2022-11-26] MEDS ORDERED: cloNIDine 0.1 MG Tab PO PRN (12:02)
[2022-11-26] MEDS ORDERED: Haloperidol Lactate 5 MG/ML SDV IV PRN (12:04)
[2022-11-26] MEDS ORDERED: Famotidine 20 MG/2 ML SDV IVPUSH PRN (12:05)
[2022-11-26] MEDS ORDERED: Folic Acid 1 MG Tab PO SCH (12:15)
[2022-11-26] MEDS ORDERED: Thiamine 100 MG Tab PO SCH (12:15)
[2022-11-26] MEDS: Magnesium Sulfate/Water 2 GM in Premix Bag 1 BAG IV SCH ×2 (12:27→14:28)
[2022-11-26] MEDS ORDERED: Ondansetron 4 MG/2 ML SDV IVPUSH SCH (13:00)
[2022-11-26] MEDS ORDERED: Potassium Chloride 20 MEQ Tab.ER PO ONE (16:12)
== END 2022-11-26 18:04 | disposition home or self-care (01) ==
LOC: JD.ED 11:14
DX: E87.6 Hypokalemia (principal); E83.42 Hypomagnesemia; F10.10 Alcohol abuse, uncomplicated; I10 Essential (primary) hypertension; Z79.899 Other long term (current) drug therapy; Z20.822 Contact with and (suspected) exposure to COVID-19
CPT/HCPCS: 0241U; 36415; 80048; 80053; 80306; 80307; 83735; 84100; 85025; 85610; 96361; 96365; 96366; 96367; 96368; 96375; 96376; 99285; A9270; J1630; J2060; J2405; J2765; J3475; J3480; J3490; J7030; J7120; 99284

== ENCOUNTER 2023-05-23 21:30 | Inpatient (IN) | payer BC, MEDICAID ==
[2023-05-23] MEDS ORDERED: LORazepam 2 MG/ML SDV IVPUSH ONE ×2 (21:47→23:20)
[2023-05-23] MEDS ORDERED: Thiamine 100 MG in Sodium Chloride 0.9% 100 ML IV ONE (21:52)
[2023-05-23] MEDS ORDERED: Dextrose 5%-Lactated Ringers 1,000 ML IV SCH (22:00)
[2023-05-23 22:20] LABS: BASOPHILS PERCENT AUTO 0.9 % (0.0-1.0); EOSINOPHILS PERCENT AUTO 0.2 % (0.0-6.0); HEMATOCRIT 35.2 % (42.0-52.0); HEMOGLOBIN 12.5 gm/dl (14.0-18.0); IMMATURE GRAN ABSOLUTE AUTO 0.03 K/mm3 (0.00-0.05); IMMATURE GRAN PERCENT AUTO 0.6 % (0.0-0.4); LYMPHOCYTES ABSOLUTE AUTO 0.6 K/mm3 (1.0-4.8); LYMPHOCYTES PERCENT AUTO 12.2 % (24.0-44.0); MEAN CORPUSCULAR HEMOGLOBIN 33.2 pg (28.0-32.0); MEAN CORPUSCULAR HGB CONC 35.5 g/dl (32.0-36.0); MEAN CORPUSCULAR VOLUME 93.4 fl (83.0-99.0); MEAN PLATELET VOLUME 11.2 fl (9.4-12.4); MONOCYTES ABSOLUTE AUTO 0.5 K/mm3 (0.0-0.8); MONOCYTES PERCENT AUTO 11.1 % (0.0-8.0); NEUTROPHILS ABSOLUTE AUTO 3.5 K/mm3 (1.8-7.7); PLATELET COUNT,PLT 67 K/mm3 (150-400); RED BLOOD CELL COUNT 3.77 M/mm3 (4.52-5.90); WHITE BLOOD CELL COUNT,WBC 4.68 K/mm3 (3.9-11.3)
[2023-05-23 22:41] LABS: INR 1.06; PROTHROMBIN TIME 11.3 SECONDS (9.7-12.0)
[2023-05-23 22:50] LABS: ALANINE AMINOTRANSFERASE,ALT 135 U/L (16-63); ALBUMIN 3.7 g/dl (3.4-5.0); ALKALINE PHOSPHATASE 228 U/L (46-116); ANION GAP 32.4 (5-15); ASPARTATE AMNIOTRANSFERASE,AST 125 U/L (15-37); BILIRUBIN TOTAL 1.4 mg/dL (0.2-1.0); BLOOD UREA NITROGEN,BUN 11 mg/dL (7-18); BUN/CREATININE RATIO 9.2 (14-18); C-REACTIVE PROTEIN <0.2 mg/dL (<1.0); CALCIUM 8.7 mg/dL (8.5-10.1); CARBON DIOXIDE,CO2 14 mEq/L (21-32); CHLORIDE,CL 94 mEq/L (98-107); CREATININE 1.2 mg/dL (0.7-1.3); ESTIMATED GFR 76 mL/min (>60); GLUCOSE RANDOM 144 mg/dL (70-99); LIPASE 109 U/L (16-77); MAGNESIUM 1.1 mg/dL (1.8-2.4); POTASSIUM,K 3.4 mEq/L (3.5-5.1); PROTEIN TOTAL,TP 7.3 g/dl (6.4-8.2); SODIUM,NA 137 mEq/L (136-145)
[2023-05-23] MEDS ORDERED: levETIRAcetam 1,000 MG in Sodium Chloride 0.9% 100 ML IV ONE (23:19)
[2023-05-23] MEDS ORDERED: Magnesium Sulfate/Water 4 GM in Premix Bag 2 BAG IV ONE (23:58)
[2023-05-24] MEDS: Magnesium Sulfate/Water 4 GM in Premix Bag 1 BAG IV SCH ×2 (00:13→04:35)
[2023-05-24] MEDS ORDERED: LORazepam 2 MG/ML SDV IVPUSH ONE ×2 (01:03→04:20)
[2023-05-24] MEDS ORDERED: diphenhydrAMINE 50 MG/ML SDV IVPUSH ONE (01:03)
[2023-05-24] MEDS ORDERED: Metoclopramide 10 MG/2 ML SDV IVPUSH ONE (01:03)
[2023-05-24] MEDS ORDERED: Gabapentin 300 MG Cap PO ONE (01:04)
[2023-05-24 06:31] LABS: ALBUMIN 3.2 g/dl (3.4-5.0); BILIRUBIN TOTAL 1.2 mg/dL (0.2-1.0); BUN/CREATININE RATIO 8.9 (14-18); CALCIUM 8.6 mg/dL (8.5-10.1); CREATININE 0.9 mg/dL (0.7-1.3); EST CRCL DRUG DOSING (CG) 101.33 mL/min; POTASSIUM,K 2.9 mEq/L (3.5-5.1); PROTEIN TOTAL,TP 6.4 g/dl (6.4-8.2)
[2023-05-24 06:38] LABS: ANION GAP 15.9 (5-15)
[2023-05-24] MEDS ORDERED: Dextrose 5%-Lactated Ringers 1,000 ML IV SCH (07:00)
[2023-05-24] MEDS: Potassium Chloride 10 MEQ in Premix Bag 1 BAG IV SCH ×6 (07:08→17:27)
[2023-05-24 07:23] LABS: AMPHETAMINES SCREEN, URINE NEGATIVE (CUTOFF=500); BARBITURATE SCREEN,URINE NEGATIVE (CUTOFF=200); BENZODIAZEPINES SCREEN,URINE PRESUMPTIVE POSITIVE (CUTOFF=150); BUPRENORPHINE SCREEN,URINE NEGATIVE (CUTOFF=10); METHADONE SCREEN, URINE NEGATIVE (CUT0FF=200); METHAMPHETAMINES SCREEN, URINE NEGATIVE (CUTOFF=500); OXYCODONE SCREEN,URINE NEGATIVE (CUT0FF=100); THC SCREEN,URINE 20 NG/ML NEGATIVE (CUTOFF=50)
[2023-05-24] MEDS: Lactated Ringers 1,000 ML IV SCH ×5 (09:00→17:33)
[2023-05-24] MEDS: LORazepam 2 MG/ML SDV IVPUSH SCH ×7 (10:16→19:27)
[2023-05-24 12:34] LABS: ANION GAP 13.3 (5-15); BUN/CREATININE RATIO 8.8 (14-18); CALCIUM 8.7 mg/dL (8.5-10.1); CREATININE 0.8 mg/dL (0.7-1.3); POTASSIUM,K 3.3 mEq/L (3.5-5.1)
[2023-05-24] MEDS ORDERED: Ondansetron 4 MG/2 ML SDV IVPUSH ONE (13:24)
[2023-05-24] MEDS ORDERED: Magnesium Sulfate (4.06 MEQ/ML) 5 GM/10 ML SDV IV ONE (14:12)
[2023-05-24] MEDS ORDERED: Magnesium Sulfate/Water 4 GM in Premix Bag 1 BAG IV ONE (14:15)
[2023-05-24] MEDS: levETIRAcetam 1,000 MG in Sodium Chloride 0.9% 100 ML IV SCH (15:06)
[2023-05-24] MEDS ORDERED: Potassium Chloride 100 ML ONE (16:15)
[2023-05-24] MEDS ORDERED: fentaNYL 100 MCG/2 ML SDV IVPUSH ONE (18:27)
[2023-05-24 21:07] LABS: ANION GAP 14.4 (5-15); BUN/CREATININE RATIO 5.7 (14-18); CALCIUM 8.9 mg/dL (8.5-10.1); CREATININE 0.7 mg/dL (0.7-1.3); EST CRCL DRUG DOSING (CG) 130.29 mL/min; POTASSIUM,K 3.4 mEq/L (3.5-5.1)
[2023-05-25] MEDS: levETIRAcetam 1,000 MG in Sodium Chloride 0.9% 100 ML IV SCH (03:56)
[2023-05-25] MEDS: LORazepam 2 MG/ML SDV IVPUSH SCH ×2 (05:08→09:49)
[2023-05-25] MEDS ORDERED: Ondansetron 4 MG/2 ML SDV IV PRN (10:26)
[2023-05-25] MEDS ORDERED: Sodium Chloride 0.9% 10 ML Syringe FLUSH PRN (10:26)
[2023-05-25] MEDS ORDERED: Ondansetron 4 MG Tab.DIS PO PRN (10:26)
[2023-05-25] MEDS ORDERED: Docusate Sodium 100 MG Cap PO PRN (10:26)
[2023-05-25] MEDS ORDERED: Heparin Sodium 5,000 Units/ML Vial SUBCUT SCH (10:30)
[2023-05-25] MEDS ORDERED: LORazepam 2 MG/ML SDV IV SCH (10:30)
[2023-05-25] MEDS: PHENobarbital Sodium 65 MG/ML SDV IVPUSH PRN ×4 (11:37→20:29)
[2023-05-25] MEDS: LORazepam 1 MG Tab PO SCH ×3 (11:39→22:57)
[2023-05-25] MEDS ORDERED: Sodium Chloride 0.9% 1,000 ML IV SCH (12:15)
[2023-05-25] MEDS: cloNIDine 0.1 MG Tab PO PRN ×3 (12:35→23:05)
[2023-05-25] MEDS ORDERED: Metoprolol Tartrate 5 MG in Sodium Chloride 0.9% 50 ML IV ONE (12:41)
[2023-05-25] MEDS ORDERED: Metoprolol Tartrate 5 MG/5 ML SDV IVPUSH ONE (12:45)
[2023-05-25] MEDS ORDERED: Metoprolol Tartrate 5 MG/5 ML SDV IV ONE (13:00)
[2023-05-25] MEDS: LORazepam 2 MG/ML SDV IV SCH ×5 (13:55→20:29)
[2023-05-25] MEDS: Heparin Sodium 5,000 Units/ML Vial SUBCUT SCH ×2 (14:20→22:54)
[2023-05-25] MEDS ORDERED: Metoprolol Tartrate 5 MG/5 ML SDV IVPUSH PRN (14:48)
[2023-05-26] MEDS: LORazepam 1 MG Tab PO SCH ×3 (00:22→02:58)
[2023-05-26] MEDS: cloNIDine 0.1 MG Tab PO PRN (02:59)
[2023-05-26 03:03] VITALS: BP 187/129
[2023-05-26 05:26] VITALS: PULSE 95
[2023-05-26] MEDS ORDERED: Pantoprazole 40 MG Vial IV SCH (09:00)
== END 2023-05-26 03:40 | disposition left against medical advice (07) | DRG 894 ==
LOC: JD.ED 21:30 → JD.ICU 05-25 10:26
PROVIDERS: ADMIT Hospitalist; ATTEND Hospitalist
DX: F10.231 Alcohol dependence with withdrawal delirium (principal); E87.20 Acidosis, unspecified; I10 Essential (primary) hypertension; R56.9 Unspecified convulsions; E87.6 Hypokalemia; F17.210 Nicotine dependence, cigarettes, uncomplicated; W18.30XA Fall on same level, unspecified, initial encounter; F41.9 Anxiety disorder, unspecified; Z91.148 Patient's other noncompliance with medication regimen for other reason; Z56.0 Unemployment, unspecified; Z79.899 Other long term (current) drug therapy
CPT/HCPCS: 36415; 70450; 70450-26; 80048; 80053; 80306; 80307; 82010; 83605; 83690; 83735; 83880; 85025; 85610; 85730; 86140; 93005; 93010; 99285; A9270-GY; J1200; J1644; J1953; J2060; J2405; J2560; J2765; J3411; J3475; J3480; J3490; J7030; J7120; J7121

== ENCOUNTER 2023-06-10 09:06 | Inpatient (IN) | payer MEDICAID ==
[2023-06-10] MEDS ORDERED: Thiamine 200 MG/2 ML MDV IVPUSH ONE (10:12)
[2023-06-10] MEDS ORDERED: Dextrose 5%-Lactated Ringers 1,000 ML IV SCH (10:15)
[2023-06-10] MEDS ORDERED: Metoclopramide 10 MG/2 ML SDV IVPUSH ONE (10:15)
[2023-06-10] MEDS ORDERED: LORazepam 2 MG/ML SDV IVPUSH ONE (10:15)
[2023-06-10 10:30] LABS: BASOPHILS ABSOLUTE AUTO 0.1 K/mm3 (0.0-0.2); BASOPHILS PERCENT AUTO 1.3 % (0.0-1.0); EOSINOPHILS PERCENT AUTO 0.5 % (0.0-6.0); HEMATOCRIT 38.4 % (42.0-52.0); HEMOGLOBIN 13.8 gm/dl (14.0-18.0); IMMATURE GRAN ABSOLUTE AUTO 0.02 K/mm3 (0.00-0.05); IMMATURE GRAN PERCENT AUTO 0.3 % (0.0-0.4); LYMPHOCYTES ABSOLUTE AUTO 0.9 K/mm3 (1.0-4.8); MEAN CORPUSCULAR HEMOGLOBIN 33.5 pg (28.0-32.0); MEAN CORPUSCULAR HGB CONC 35.9 g/dl (32.0-36.0); MEAN CORPUSCULAR VOLUME 93.2 fl (83.0-99.0); MEAN PLATELET VOLUME 11.3 fl (9.4-12.4); MONOCYTES ABSOLUTE AUTO 0.6 K/mm3 (0.0-0.8); MONOCYTES PERCENT AUTO 9.1 % (0.0-8.0); NEUTROPHILS ABSOLUTE AUTO 4.5 K/mm3 (1.8-7.7); NEUTROPHILS PERCENT AUTO 73.8 % (41.0-71.0); PLATELET COUNT,PLT 88 K/mm3 (150-400); RED BLOOD CELL COUNT 4.12 M/mm3 (4.52-5.90); WHITE BLOOD CELL COUNT,WBC 6.15 K/mm3 (3.9-11.3)
[2023-06-10 10:34] LABS: INR 0.99; PROTHROMBIN TIME 10.6 SECONDS (9.7-12.0)
[2023-06-10 10:35] LABS: PTT,PARTIAL THROMBOPLSTIN TIME 27.6 SECONDS (21.7-31.4)
[2023-06-10 10:47] LABS: A/G RATIO 0.9 (1-2); ALBUMIN 3.9 g/dl (3.4-5.0); ANION GAP 25.5 (5-15); BILIRUBIN TOTAL 1.4 mg/dL (0.2-1.0); CALCIUM 9.2 mg/dL (8.5-10.1); EST CRCL DRUG DOSING (CG) 97.33 mL/min; ETHANOL BLOOD MEDICAL 0.04 gm% (0.00); POTASSIUM,K 3.5 mEq/L (3.5-5.1); PROTEIN TOTAL,TP 8.2 g/dl (6.4-8.2)
[2023-06-10 10:52] LABS: SLIDE REVIEW ABNORMAL SMEAR
[2023-06-10] MEDS ORDERED: Proparacaine 0.5% Ophth Soln 15 ML Bottle EYELF ONE (12:27)
[2023-06-10] MEDS ORDERED: Proparacaine 0.5% Ophth Soln 15 ML Bottle EYEBOTH ONE (12:31)
[2023-06-10] MEDS ORDERED: Magnesium Sulfate/Water 4 GM in Premix Bag 1 BAG IV ONE (13:36)
[2023-06-10] MEDS: LORazepam 2 MG/ML SDV IV SCH ×6 (14:23→22:14)
[2023-06-10] MEDS: Gentamicin 0.3% Ophth Soln 5 ML Bottle EYEBOTH SCH ×2 (15:29→20:02)
[2023-06-10] MEDS ORDERED: Pantoprazole 40 MG Vial IVPUSH SCH (18:00)
[2023-06-10] MEDS: Acetaminophen 325 MG Tab PO PRN (20:08)
[2023-06-11] MEDS: LORazepam 2 MG/ML SDV IV SCH ×13 (02:13→23:24)
[2023-06-11 05:32] LABS: A/G RATIO 0.9 (1-2); ALBUMIN 3.2 g/dl (3.4-5.0); ANION GAP 13.5 (5-15); BILIRUBIN TOTAL 0.8 mg/dL (0.2-1.0); BUN/CREATININE RATIO 17.5 (14-18); CALCIUM 9.2 mg/dL (8.5-10.1); CREATININE 0.8 mg/dL (0.7-1.3); EST CRCL DRUG DOSING (CG) 121.67 mL/min; MAGNESIUM 1.9 mg/dL (1.8-2.4); POTASSIUM,K 3.5 mEq/L (3.5-5.1); PROTEIN TOTAL,TP 6.8 g/dl (6.4-8.2)
[2023-06-11 06:00] LABS: HEMATOCRIT 34.6 % (42.0-52.0); HEMOGLOBIN 12.4 gm/dl (14.0-18.0); MEAN CORPUSCULAR HEMOGLOBIN 33.7 pg (28.0-32.0); MEAN CORPUSCULAR HGB CONC 35.8 g/dl (32.0-36.0); MEAN PLATELET VOLUME 11.9 fl (9.4-12.4); PLATELET COUNT,PLT 71 K/mm3 (150-400); RED BLOOD CELL COUNT 3.68 M/mm3 (4.52-5.90); WHITE BLOOD CELL COUNT,WBC 4.32 K/mm3 (3.9-11.3)
[2023-06-11 06:03] LABS: APPEARANCE,URINE CLEAR (Clear); BILIRUBIN,URINE 1+ (Negative); COLOR,URINE YELLOW (Yellow); GLUCOSE,URINE NEGATIVE (Negative); KETONES,URINE 1+ (Negative); LEUKOCYTE ESTERASE,URINE NEGATIVE (Negative); NITRITE,URINE NEGATIVE (Negative); OCCULT BLOOD,URINE NEGATIVE (Negative); PROTEIN,URINE 1+ (Negative)
[2023-06-11 06:10] LABS: BARBITURATE SCREEN,URINE PRESUMPTIVE POSITIVE (CUTOFF=200); BENZODIAZEPINES SCREEN,URINE PRESUMPTIVE POSITIVE (CUTOFF=150); BUPRENORPHINE SCREEN,URINE NEGATIVE (CUTOFF=10); METHADONE SCREEN, URINE NEGATIVE (CUT0FF=200); METHAMPHETAMINES SCREEN, URINE NEGATIVE (CUTOFF=500); OXYCODONE SCREEN,URINE NEGATIVE (CUT0FF=100); THC SCREEN,URINE 20 NG/ML NEGATIVE (CUTOFF=50)
[2023-06-11 06:12] LABS: AMPHETAMINES SCREEN, URINE NEGATIVE (CUTOFF=500)
[2023-06-11 06:20] LABS: BACTERIA,URINE FEW /hpf (FEW); EPITHELIAL CELLS,URINE 0-5 /hpf (0-5); MUCUS,URINE FEW /hpf (FEW); RBC,URINE 0-5 /hpf (0-5); WBC,URINE 0-5 /hpf (0-5)
[2023-06-11 06:21] LABS: HYALINE CASTS,URINE 0-5 /lpf (0-5)
[2023-06-11] MEDS: Thiamine 200 MG/2 ML MDV IVPUSH SCH (08:06)
[2023-06-11] MEDS: Potassium Chloride 20 MEQ Tab.ER PO SCH (08:13)
[2023-06-11] MEDS: Gentamicin 0.3% Ophth Soln 5 ML Bottle EYEBOTH SCH ×3 (08:15→20:15)
[2023-06-11] MEDS: Carboxymethylcellulose Sodium 1% Ophth Gel 15 ML Bottle EYEBOTH PRN (10:41)
[2023-06-11] MEDS ORDERED: PHENobarbital Sodium 65 MG/ML SDV IVPUSH ONE (14:30)
[2023-06-11] MEDS: Pantoprazole 40 MG Tab.CR PO SCH (18:00)
[2023-06-11] MEDS: Acetaminophen 325 MG Tab PO PRN (20:12)
[2023-06-12] MEDS ORDERED: PHENobarbital Sodium 65 MG/ML SDV IVPUSH ONE (00:20)
[2023-06-12] MEDS: LORazepam 2 MG/ML SDV IV SCH ×17 (00:31→22:29)
[2023-06-12] MEDS: Pantoprazole 40 MG Tab.CR PO SCH ×2 (06:06→15:08)
[2023-06-12] MEDS: Carboxymethylcellulose Sodium 1% Ophth Gel 15 ML Bottle EYEBOTH PRN ×2 (07:27→12:44)
[2023-06-12 08:08] LABS: HEMATOCRIT 35.2 % (42.0-52.0); HEMOGLOBIN 12.4 gm/dl (14.0-18.0); MEAN CORPUSCULAR HEMOGLOBIN 33.5 pg (28.0-32.0); MEAN CORPUSCULAR HGB CONC 35.2 g/dl (32.0-36.0); MEAN CORPUSCULAR VOLUME 95.1 fl (83.0-99.0); MEAN PLATELET VOLUME 11.5 fl (9.4-12.4); PLATELET COUNT,PLT 73 K/mm3 (150-400); WHITE BLOOD CELL COUNT,WBC 4.79 K/mm3 (3.9-11.3)
[2023-06-12] MEDS: Potassium Chloride 20 MEQ Tab.ER PO SCH (08:14)
[2023-06-12] MEDS: Thiamine 200 MG/2 ML MDV IVPUSH SCH (08:14)
[2023-06-12] MEDS: Gentamicin 0.3% Ophth Soln 5 ML Bottle EYEBOTH SCH ×3 (08:15→20:12)
[2023-06-12 08:59] LABS: A/G RATIO 0.9 (1-2); ALBUMIN 3.2 g/dl (3.4-5.0); ANION GAP 13.8 (5-15); BILIRUBIN TOTAL 0.4 mg/dL (0.2-1.0); BUN/CREATININE RATIO 12.2 (14-18); CREATININE 0.9 mg/dL (0.7-1.3); EST CRCL DRUG DOSING (CG) 108.15 mL/min; MAGNESIUM 1.4 mg/dL (1.8-2.4); POTASSIUM,K 3.8 mEq/L (3.5-5.1); PROTEIN TOTAL,TP 6.7 g/dl (6.4-8.2)
[2023-06-12] MEDS ORDERED: Magnesium Sulfate (4.06 MEQ/ML) 5 GM/10 ML SDV IV ONE (09:15)
[2023-06-12] MEDS ORDERED: Magnesium Sulfate/Water 2 GM/50 ML BAG IV ONE (09:30)
[2023-06-12] MEDS: Lisinopril 20 MG Tab PO SCH (15:37)
[2023-06-12] MEDS ORDERED: traZODone 50 MG Tab PO ONE (19:50)
[2023-06-12] MEDS: cloNIDine 0.1 MG Tab PO SCH (20:12)
[2023-06-12] MEDS: Metoprolol Succinate 50 MG Tab.ER PO SCH (20:12)
[2023-06-13] MEDS: LORazepam 2 MG/ML SDV IV SCH ×6 (00:10→11:04)
[2023-06-13 05:38] LABS: HEMATOCRIT 34.2 % (42.0-52.0); HEMOGLOBIN 12.3 gm/dl (14.0-18.0); MEAN CORPUSCULAR VOLUME 94.5 fl (83.0-99.0); MEAN PLATELET VOLUME 11.3 fl (9.4-12.4); PLATELET COUNT,PLT 85 K/mm3 (150-400); RED BLOOD CELL COUNT 3.62 M/mm3 (4.52-5.90); WHITE BLOOD CELL COUNT,WBC 5.79 K/mm3 (3.9-11.3)
[2023-06-13 06:08] LABS: A/G RATIO 0.9 (1-2); ALBUMIN 3.2 g/dl (3.4-5.0); ANION GAP 13.6 (5-15); BILIRUBIN TOTAL 0.3 mg/dL (0.2-1.0); CREATININE 0.9 mg/dL (0.7-1.3); EST CRCL DRUG DOSING (CG) 108.15 mL/min; MAGNESIUM 1.5 mg/dL (1.8-2.4); POTASSIUM,K 3.6 mEq/L (3.5-5.1); PROTEIN TOTAL,TP 6.7 g/dl (6.4-8.2)
[2023-06-13] MEDS: Pantoprazole 40 MG Tab.CR PO SCH ×2 (06:16→15:07)
[2023-06-13] MEDS ORDERED: Magnesium Sulfate/Water 4 GM in Premix Bag 1 BAG IV ONE (07:10)
[2023-06-13] MEDS: Thiamine 200 MG/2 ML MDV IVPUSH SCH (08:07)
[2023-06-13] MEDS: Metoprolol Succinate 50 MG Tab.ER PO SCH ×2 (08:09→20:03)
[2023-06-13] MEDS: Lisinopril 20 MG Tab PO SCH (08:15)
[2023-06-13] MEDS: Potassium Chloride 20 MEQ Tab.ER PO SCH (08:15)
[2023-06-13] MEDS: cloNIDine 0.1 MG Tab PO SCH ×2 (08:16→20:02)
[2023-06-13] MEDS: Gentamicin 0.3% Ophth Soln 5 ML Bottle EYEBOTH SCH ×3 (08:17→20:02)
[2023-06-13] MEDS: LORazepam 1 MG Tab PO SCH ×3 (15:07→20:01)
[2023-06-14] MEDS ORDERED: traZODone 50 MG Tab PO ONE (00:02)
[2023-06-14] MEDS: LORazepam 1 MG Tab PO SCH ×3 (00:25→10:06)
[2023-06-14 05:42] LABS: HEMATOCRIT 33.7 % (42.0-52.0); HEMOGLOBIN 11.9 gm/dl (14.0-18.0); MEAN CORPUSCULAR HEMOGLOBIN 33.5 pg (28.0-32.0); MEAN CORPUSCULAR HGB CONC 35.3 g/dl (32.0-36.0); MEAN CORPUSCULAR VOLUME 94.9 fl (83.0-99.0); MEAN PLATELET VOLUME 11.2 fl (9.4-12.4); PLATELET COUNT,PLT 100 K/mm3 (150-400); RED BLOOD CELL COUNT 3.55 M/mm3 (4.52-5.90); WHITE BLOOD CELL COUNT,WBC 6.62 K/mm3 (3.9-11.3)
[2023-06-14 05:56] LABS: ALBUMIN 3.4 g/dl (3.4-5.0); BILIRUBIN TOTAL 0.2 mg/dL (0.2-1.0); BUN/CREATININE RATIO 17.1 (14-18); CALCIUM 8.8 mg/dL (8.5-10.1); CREATININE 0.7 mg/dL (0.7-1.3); EST CRCL DRUG DOSING (CG) 139.05 mL/min; PROTEIN TOTAL,TP 6.9 g/dl (6.4-8.2)
[2023-06-14] MEDS: Pantoprazole 40 MG Tab.CR PO SCH (06:04)
[2023-06-14] MEDS: Carboxymethylcellulose Sodium 1% Ophth Gel 15 ML Bottle EYEBOTH PRN (06:04)
[2023-06-14] MEDS: Potassium Chloride 20 MEQ Tab.ER PO SCH (08:57)
[2023-06-14] MEDS: cloNIDine 0.1 MG Tab PO SCH (08:58)
[2023-06-14] MEDS: Metoprolol Succinate 50 MG Tab.ER PO SCH (08:58)
[2023-06-14] MEDS: Lisinopril 20 MG Tab PO SCH (08:59)
[2023-06-14] MEDS: Gentamicin 0.3% Ophth Soln 5 ML Bottle EYEBOTH SCH (08:59)
[2023-06-14] MEDS: Thiamine 200 MG/2 ML MDV IVPUSH SCH (09:00)
[2023-06-14 12:23] VITALS: BP 146/100; PULSE 66
[2023-06-15] MEDS ORDERED: Thiamine 100 MG Tab PO SCH (09:00)
== END 2023-06-14 12:36 | disposition home or self-care (01) | DRG 897 ==
LOC: JD.ED 09:06 → JD.ICU 12:51
PROVIDERS: ADMIT Internal Medicine; ATTEND Internal Medicine
DX: F10.221 Alcohol dependence with intoxication delirium (principal); F41.9 Anxiety disorder, unspecified; K70.10 Alcoholic hepatitis without ascites; K70.30 Alcoholic cirrhosis of liver without ascites; D69.6 Thrombocytopenia, unspecified; I10 Essential (primary) hypertension; F17.210 Nicotine dependence, cigarettes, uncomplicated; Z56.0 Unemployment, unspecified; Z79.899 Other long term (current) drug therapy
CPT/HCPCS: 36415; 71045; 71045-26; 80053; 80306; 80307; 81001; 82977; 83605; 83690; 83735; 83880; 85025; 85027; 85610; 85730; 93005; 93010; 96361; 96374; 96375; 99285; 99285-25; A9270-GY; C9113; J2060; J2560; J2765; J3411; J3475; J7121

== ENCOUNTER 2023-06-14 20:44 | Inpatient (IN) | payer MEDICAID ==
[2023-06-14] MEDS ORDERED: LORazepam 2 MG/ML SDV IVPUSH ONE (21:20)
[2023-06-14 21:34] LABS: BARBITURATE SCREEN,URINE PRESUMPTIVE POSITIVE (CUTOFF=200); BENZODIAZEPINES SCREEN,URINE PRESUMPTIVE POSITIVE (CUTOFF=150)
[2023-06-14 21:35] LABS: AMPHETAMINES SCREEN, URINE NEGATIVE (CUTOFF=500); BUPRENORPHINE SCREEN,URINE NEGATIVE (CUTOFF=10); METHADONE SCREEN, URINE NEGATIVE (CUT0FF=200); METHAMPHETAMINES SCREEN, URINE NEGATIVE (CUTOFF=500); OXYCODONE SCREEN,URINE NEGATIVE (CUT0FF=100); THC SCREEN,URINE 20 NG/ML NEGATIVE (CUTOFF=50)
[2023-06-14 21:48] LABS: HEMATOCRIT 38.2 % (42.0-52.0); HEMOGLOBIN 13.3 gm/dl (14.0-18.0); MEAN CORPUSCULAR HEMOGLOBIN 33.6 pg (28.0-32.0); MEAN CORPUSCULAR HGB CONC 34.8 g/dl (32.0-36.0); MEAN CORPUSCULAR VOLUME 96.5 fl (83.0-99.0); MEAN PLATELET VOLUME 10.4 fl (9.4-12.4); PLATELET COUNT,PLT 140 K/mm3 (150-400); RED BLOOD CELL COUNT 3.96 M/mm3 (4.52-5.90); WHITE BLOOD CELL COUNT,WBC 6.23 K/mm3 (3.9-11.3)
[2023-06-14 21:49] LABS: BASOPHILS PERCENT AUTO 0.6 % (0.0-1.0); EOSINOPHILS PERCENT AUTO 0.2 % (0.0-6.0); IMMATURE GRAN ABSOLUTE AUTO 0.04 K/mm3 (0.00-0.05); IMMATURE GRAN PERCENT AUTO 0.6 % (0.0-0.4); LYMPHOCYTES ABSOLUTE AUTO 1.3 K/mm3 (1.0-4.8); LYMPHOCYTES PERCENT AUTO 20.1 % (24.0-44.0); MONOCYTES ABSOLUTE AUTO 0.8 K/mm3 (0.0-0.8); MONOCYTES PERCENT AUTO 12.8 % (0.0-8.0); NEUTROPHILS ABSOLUTE AUTO 4.1 K/mm3 (1.8-7.7); NEUTROPHILS PERCENT AUTO 65.7 % (41.0-71.0)
[2023-06-14 22:06] LABS: ANION GAP 14.7 (5-15); POTASSIUM,K 3.7 mEq/L (3.5-5.1)
[2023-06-14 22:07] LABS: CALCIUM 9.4 mg/dL (8.5-10.1); EST CRCL DRUG DOSING (CG) 97.33 mL/min; PROTEIN TOTAL,TP 8.1 g/dl (6.4-8.2)
[2023-06-14 22:08] LABS: BILIRUBIN TOTAL 0.2 mg/dL (0.2-1.0); ETHANOL BLOOD MEDICAL 0.22 gm% (0.00)
[2023-06-14 22:10] LABS: MAGNESIUM 1.9 mg/dL (1.8-2.4)
[2023-06-14] MEDS ORDERED: Thiamine 100 MG in Sodium Chloride 0.9% 100 ML IV ONE (22:40)
[2023-06-14] MEDS ORDERED: Sodium Chloride 0.9% 1,000 ML IV ONE (22:59)
[2023-06-14] MEDS ORDERED: chlordiazePOXIDE 25 MG Cap PO SCH (23:00)
[2023-06-15] MEDS ORDERED: LORazepam 2 MG/ML SDV IVPUSH ONE (01:02)
[2023-06-15] MEDS ORDERED: LORazepam 1 MG Tab PO ONE (01:22)
[2023-06-15] MEDS ORDERED: LORazepam 2 MG/ML SDV IVPUSH PRN (06:00)
[2023-06-15] MEDS ORDERED: LORazepam 2 MG/ML SDV ONE (06:17)
[2023-06-15] MEDS ORDERED: Ondansetron 4 MG/2 ML SDV IV PRN (09:13)
[2023-06-15] MEDS ORDERED: Ondansetron 4 MG Tab.DIS PO PRN (09:13)
[2023-06-15] MEDS ORDERED: Acetaminophen 325 MG Tab PO PRN (09:13)
[2023-06-15] MEDS ORDERED: Famotidine 20 MG Tab PO SCH (09:15)
[2023-06-15] MEDS: LORazepam 1 MG Tab PO SCH ×4 (10:13→21:41)
[2023-06-15] MEDS: cloNIDine 0.1 MG Tab PO SCH ×2 (10:13→20:32)
[2023-06-15] MEDS ORDERED: Metoprolol Succinate 50 MG Tab.ER PO SCH (21:00)
[2023-06-15] MEDS ORDERED: traZODone 50 MG Tab PO ONE (21:50)
[2023-06-16] MEDS: LORazepam 1 MG Tab PO SCH (06:55)
[2023-06-16] MEDS ORDERED: LORazepam 1 MG Tab PO ONE (07:50)
[2023-06-16 07:56] VITALS: BP 148/102; PULSE 87
[2023-06-16] MEDS ORDERED: Thiamine 100 MG Tab PO SCH (09:00)
[2023-06-16] MEDS ORDERED: Folic Acid 1 MG Tab PO SCH (09:00)
== END 2023-06-16 07:52 | DRG 897 ==
LOC: JD.ED 20:44 → JD.ICU 22:52
PROVIDERS: ADMIT Hospitalist; ATTEND Hospitalist
DX: F10.251 Alcohol dependence with alcohol-induced psychotic disorder with hallucinations (principal); F10.229 Alcohol dependence with intoxication, unspecified; Y90.0 Blood alcohol level of less than 20 mg/100 ml; I10 Essential (primary) hypertension; F41.9 Anxiety disorder, unspecified; K70.30 Alcoholic cirrhosis of liver without ascites; R56.9 Unspecified convulsions; D69.6 Thrombocytopenia, unspecified; F17.210 Nicotine dependence, cigarettes, uncomplicated; Z56.0 Unemployment, unspecified; Z98.890 Other specified postprocedural states; Z87.898 Personal history of other specified conditions
CPT/HCPCS: 36415; 80053; 80306; 80307; 83605; 83690; 83735; 84100; 85025; 96374; 99285; 99285-25; A9270-GY; J2060; J3411; J3490; J7030

== ENCOUNTER 2024-03-29 06:54 | Emergency (ER) | payer MEDICAID ==
[2024-03-29 07:06] VITALS: BP 141/106; PULSE 82
[2024-03-29] MEDS: Sodium Chloride 0.9% 1,000 ML IV SCH (08:35)
[2024-03-29 08:38] LABS: BASOPHILS ABSOLUTE AUTO 0.1 K/mm3 (0.0-0.2); BASOPHILS PERCENT AUTO 1.6 % (0.0-1.0); EOSINOPHILS ABSOLUTE AUTO 0.2 K/mm3 (0.0-0.4); EOSINOPHILS PERCENT AUTO 3.3 % (0.0-6.0); HEMATOCRIT 39.7 % (42.0-52.0); HEMOGLOBIN 14.1 gm/dl (14.0-18.0); IMMATURE GRAN ABSOLUTE AUTO 0.02 K/mm3 (0.00-0.05); IMMATURE GRAN PERCENT AUTO 0.4 % (0.0-0.4); LYMPHOCYTES ABSOLUTE AUTO 1.2 K/mm3 (1.0-4.8); LYMPHOCYTES PERCENT AUTO 26.3 % (24.0-44.0); MEAN CORPUSCULAR HEMOGLOBIN 31.7 pg (28.0-32.0); MEAN CORPUSCULAR HGB CONC 35.5 g/dl (32.0-36.0); MEAN CORPUSCULAR VOLUME 89.2 fl (83.0-99.0); MEAN PLATELET VOLUME 12.1 fl (9.4-12.4); MONOCYTES ABSOLUTE AUTO 0.7 K/mm3 (0.0-0.8); MONOCYTES PERCENT AUTO 16.1 % (0.0-8.0); NEUTROPHILS ABSOLUTE AUTO 2.3 K/mm3 (1.8-7.7); NEUTROPHILS PERCENT AUTO 52.3 % (41.0-71.0); PLATELET COUNT,PLT 85 K/mm3 (150-400); RED BLOOD CELL COUNT 4.45 M/mm3 (4.52-5.90); WHITE BLOOD CELL COUNT,WBC 4.48 K/mm3 (3.9-11.3)
[2024-03-29 08:58] LABS: INR 1.03; PROTHROMBIN TIME 10.9 SECONDS (9.7-12.0)
[2024-03-29 09:07] LABS: BARBITURATE SCREEN,URINE NEGATIVE (CUTOFF=200); BENZODIAZEPINES SCREEN,URINE PRESUMPTIVE POSITIVE (CUTOFF=150); BUPRENORPHINE SCREEN,URINE NEGATIVE (CUTOFF=10); METHADONE SCREEN, URINE NEGATIVE (CUT0FF=200); METHAMPHETAMINES SCREEN, URINE NEGATIVE (CUTOFF=500); OXYCODONE SCREEN,URINE NEGATIVE (CUT0FF=100); THC SCREEN,URINE 20 NG/ML PRESUMPTIVE POSITIVE (CUTOFF=50)
[2024-03-29 09:09] LABS: AMPHETAMINES SCREEN, URINE NEGATIVE (CUTOFF=500)
[2024-03-29 09:13] LABS: SLIDE REVIEW NORMAL SMEAR
[2024-03-29 09:37] LABS: A/G RATIO 1.1 (1-2); ALBUMIN 4.1 g/dl (3.4-5.0); ANION GAP 20.9 (5-15); BUN/CREATININE RATIO 13.3 (14-18); CALCIUM 9.5 mg/dL (8.5-10.1); CREATININE 0.6 mg/dL (0.7-1.3); EST CRCL DRUG DOSING (CG) 160.53 mL/min; MAGNESIUM 1.5 mg/dL (1.8-2.4); PROTEIN TOTAL,TP 7.7 g/dl (6.4-8.2)
[2024-03-29 09:40] LABS: POTASSIUM,K 4.9 mEq/L (3.5-5.1)
== END 2024-03-29 10:24 | disposition home or self-care (01) ==
LOC: JD.ED 06:54
DX: F10.10 Alcohol abuse, uncomplicated (principal); I10 Essential (primary) hypertension; Z79.899 Other long term (current) drug therapy
CPT/HCPCS: 36415; 80053; 80306; 80307; 83735; 85025; 85610; 96360; 99284; J7030; 99283

== ENCOUNTER 2024-03-30 13:01 | Inpatient (IN) | payer MEDICAID ==
[2024-03-30 14:20] LABS: BASOPHILS ABSOLUTE AUTO 0.1 K/mm3 (0.0-0.2); BASOPHILS PERCENT AUTO 1.8 % (0.0-1.0); EOSINOPHILS PERCENT AUTO 0.7 % (0.0-6.0); HEMATOCRIT 40.9 % (42.0-52.0); HEMOGLOBIN 14.1 gm/dl (14.0-18.0); IMMATURE GRAN ABSOLUTE AUTO 0.01 K/mm3 (0.00-0.05); IMMATURE GRAN PERCENT AUTO 0.2 % (0.0-0.4); LYMPHOCYTES ABSOLUTE AUTO 1.1 K/mm3 (1.0-4.8); LYMPHOCYTES PERCENT AUTO 18.6 % (24.0-44.0); MEAN CORPUSCULAR HEMOGLOBIN 31.5 pg (28.0-32.0); MEAN CORPUSCULAR HGB CONC 34.5 g/dl (32.0-36.0); MEAN CORPUSCULAR VOLUME 91.3 fl (83.0-99.0); MEAN PLATELET VOLUME 10.9 fl (9.4-12.4); MONOCYTES ABSOLUTE AUTO 0.8 K/mm3 (0.0-0.8); MONOCYTES PERCENT AUTO 14.4 % (0.0-8.0); NEUTROPHILS ABSOLUTE AUTO 3.7 K/mm3 (1.8-7.7); NEUTROPHILS PERCENT AUTO 64.3 % (41.0-71.0); PLATELET COUNT,PLT 151 K/mm3 (150-400); RED BLOOD CELL COUNT 4.48 M/mm3 (4.52-5.90)
[2024-03-30] MEDS: Sodium Chloride 0.9% 1,000 ML IV ONE (14:49)
[2024-03-30 15:10] LABS: A/G RATIO 1.2 (1-2); ALBUMIN 4.4 g/dl (3.4-5.0); BILIRUBIN TOTAL 0.7 mg/dL (0.2-1.0); CALCIUM 9.7 mg/dL (8.5-10.1); EST CRCL DRUG DOSING (CG) 96.32 mL/min; PROTEIN TOTAL,TP 8.1 g/dl (6.4-8.2); TSH 1.993 uIU/mL (0.358-3.74)
[2024-03-30 15:19] LABS: AMPHETAMINES SCREEN, URINE NEGATIVE (CUTOFF=500); BARBITURATE SCREEN,URINE NEGATIVE (CUTOFF=200); BENZODIAZEPINES SCREEN,URINE PRESUMPTIVE POSITIVE (CUTOFF=150); BUPRENORPHINE SCREEN,URINE NEGATIVE (CUTOFF=10); METHADONE SCREEN, URINE NEGATIVE (CUT0FF=200); METHAMPHETAMINES SCREEN, URINE NEGATIVE (CUTOFF=500); OXYCODONE SCREEN,URINE NEGATIVE (CUT0FF=100); THC SCREEN,URINE 20 NG/ML PRESUMPTIVE POSITIVE (CUTOFF=50)
[2024-03-30] MEDS: LORazepam 1 MG Tab PO ONE (16:01)
[2024-03-30] MEDS ORDERED: Sodium Chloride 0.9% 1,000 ML IV SCH (18:15)
[2024-03-30 18:41] LABS: INR 1.03; PROTHROMBIN TIME 10.9 SECONDS (9.7-12.0)
[2024-03-30] MEDS ORDERED: hydrOXYzine HCl 50 MG Tab PO PRN (19:27)
[2024-03-30] MEDS: LORazepam 2 MG/ML SDV IV PRN (19:43)
[2024-03-30] MEDS: Magnesium Sulfate/Water Premix 4 GM in Premix Bag 1 BAG IV ONE (19:48)
[2024-03-30] MEDS: PHENobarbitaL sodium 260 MG in Sodium Chloride 0.9% 100 ML IV ONE (20:05)
[2024-03-30] MEDS: Thiamine 200 MG/2 ML MDV IVPUSH SCH (20:11)
[2024-03-30] MEDS: busPIRone 15 MG Tab PO SCH (20:12)
[2024-03-30] MEDS: Metoprolol Succinate 50 MG Tab.ER PO SCH (20:12)
[2024-03-30] MEDS: Folic Acid 50 MG/10 ML MDV IV SCH (20:54)
[2024-03-30] MEDS: Ondansetron 4 MG/2 ML SDV IV PRN (21:14)
[2024-03-31 05:41] LABS: A/G RATIO 1.2 (1-2); ALBUMIN 3.9 g/dl (3.4-5.0); ANION GAP 16.2 (5-15); BILIRUBIN TOTAL 0.7 mg/dL (0.2-1.0); CALCIUM 9.1 mg/dL (8.5-10.1); CREATININE 0.8 mg/dL (0.7-1.3); EST CRCL DRUG DOSING (CG) 120.4 mL/min; POTASSIUM,K 4.2 mEq/L (3.5-5.1); PROTEIN TOTAL,TP 7.3 g/dl (6.4-8.2)
[2024-03-31 05:56] LABS: HEMATOCRIT 40.9 % (42.0-52.0); HEMOGLOBIN 14.2 gm/dl (14.0-18.0); MEAN CORPUSCULAR HEMOGLOBIN 31.8 pg (28.0-32.0); MEAN CORPUSCULAR HGB CONC 34.7 g/dl (32.0-36.0); MEAN CORPUSCULAR VOLUME 91.7 fl (83.0-99.0); MEAN PLATELET VOLUME 11.8 fl (9.4-12.4); PLATELET COUNT,PLT 115 K/mm3 (150-400); RED BLOOD CELL COUNT 4.46 M/mm3 (4.52-5.90); WHITE BLOOD CELL COUNT,WBC 5.68 K/mm3 (3.9-11.3)
[2024-03-31] MEDS: LORazepam 2 MG/ML SDV IV PRN (07:06)
[2024-03-31] MEDS: Folic Acid 50 MG/10 ML MDV IV SCH (09:00)
[2024-03-31] MEDS: Enoxaparin 40 MG/0.4 ML Syringe SUBCUT SCH (10:40)
[2024-03-31] MEDS: Multivitamin Tab PO SCH (10:42)
[2024-03-31] MEDS: Lisinopril 20 MG Tab PO SCH (10:42)
[2024-03-31] MEDS: hydrOXYzine HCl 50 MG Tab PO PRN (16:08)
[2024-03-31] MEDS: PHENobarbital Sodium 65 MG/ML SDV IVPUSH ONE (20:00)
[2024-04-01 05:36] LABS: HEMATOCRIT 40.8 % (42.0-52.0); HEMOGLOBIN 14.1 gm/dl (14.0-18.0); MEAN CORPUSCULAR HEMOGLOBIN 31.7 pg (28.0-32.0); MEAN CORPUSCULAR HGB CONC 34.6 g/dl (32.0-36.0); MEAN CORPUSCULAR VOLUME 91.7 fl (83.0-99.0); PLATELET COUNT,PLT 157 K/mm3 (150-400); RED BLOOD CELL COUNT 4.45 M/mm3 (4.52-5.90); WHITE BLOOD CELL COUNT,WBC 6.81 K/mm3 (3.9-11.3)
[2024-04-01 05:49] LABS: A/G RATIO 1.1 (1-2); ALBUMIN 3.9 g/dl (3.4-5.0); ANION GAP 15.2 (5-15); BILIRUBIN TOTAL 0.4 mg/dL (0.2-1.0); BUN/CREATININE RATIO 11.1 (14-18); CALCIUM 9.3 mg/dL (8.5-10.1); CREATININE 0.9 mg/dL (0.7-1.3); EST CRCL DRUG DOSING (CG) 107.02 mL/min; POTASSIUM,K 4.2 mEq/L (3.5-5.1); PROTEIN TOTAL,TP 7.4 g/dl (6.4-8.2)
[2024-04-01] MEDS: Folic Acid 1 MG Tab PO SCH (09:27)
[2024-04-01] MEDS: Sodium Chloride 0.9% 1,000 ML IV SCH (20:23)
[2024-04-02] MEDS: Thiamine 100 MG Tab PO SCH (09:53)
[2024-04-02] MEDS: Lisinopril 20 MG Tab PO ONE (11:35)
[2024-04-02] MEDS: Melatonin 3 MG Tab PO PRN (20:04)
[2024-04-02] MEDS: Acetaminophen 325 MG Tab PO PRN (20:10)
[2024-04-03] MEDS: Lisinopril 20 MG Tab PO SCH (08:21)
[2024-04-03] MEDS: chlordiazePOXIDE 25 MG Cap PO ONE (08:48)
[2024-04-03 12:25] VITALS: PULSE 90
[2024-04-03 14:25] VITALS: BP 126/96
== END 2024-04-03 14:20 | disposition home or self-care (01) | DRG 896 ==
LOC: JD.ED 13:01 → JD.ICU 18:12
PROVIDERS: ADMIT Family Medicine; ATTEND Internal Medicine
DX: F10.932 Alcohol use, unspecified with withdrawal with perceptual disturbance (principal); K85.20 Alcohol induced acute pancreatitis without necrosis or infection; I10 Essential (primary) hypertension; F41.9 Anxiety disorder, unspecified; F17.210 Nicotine dependence, cigarettes, uncomplicated; G40.909 Epilepsy, unspecified, not intractable, without status epilepticus; K70.10 Alcoholic hepatitis without ascites; F12.90 Cannabis use, unspecified, uncomplicated; E83.42 Hypomagnesemia; F10.931 Alcohol use, unspecified with withdrawal delirium; F10.921 Alcohol use, unspecified with intoxication delirium; F10.951 Alcohol use, unspecified with alcohol-induced psychotic disorder with hallucinations; Z79.899 Other long term (current) drug therapy
CPT/HCPCS: 36415; 80053; 80143; 80179; 80306; 80307; 83605; 83735; 84443; 85025; 85027; 85610; 93005; 96360; 96361; 99285-25; A9270-GY; J1650; J2060; J2405; J2560; J3411; J3475; J3490; J7030

== ENCOUNTER 2024-06-06 12:03 | Inpatient (IN) | payer MEDICAID ==
[2024-06-06] MEDS: LORazepam 2 MG/ML SDV IVPUSH ONE ×3 (12:31→19:11)
[2024-06-06] MEDS: Sodium Chloride 0.9% 1,000 ML IV ONE ×2 (12:31→14:12)
[2024-06-06 12:41] LABS: BASOPHILS PERCENT AUTO 0.3 % (0.0-1.0); EOSINOPHILS PERCENT AUTO 0.1 % (0.0-6.0); HEMATOCRIT 43.1 % (42.0-52.0); HEMOGLOBIN 15.3 gm/dl (14.0-18.0); IMMATURE GRAN ABSOLUTE AUTO 0.06 K/mm3 (0.00-0.05); IMMATURE GRAN PERCENT AUTO 0.4 % (0.0-0.4); LYMPHOCYTES ABSOLUTE AUTO 1.6 K/mm3 (1.0-4.8); LYMPHOCYTES PERCENT AUTO 12.1 % (24.0-44.0); MEAN CORPUSCULAR HEMOGLOBIN 31.4 pg (28.0-32.0); MEAN CORPUSCULAR HGB CONC 35.5 g/dl (32.0-36.0); MEAN CORPUSCULAR VOLUME 88.3 fl (83.0-99.0); MEAN PLATELET VOLUME 11.4 fl (9.4-12.4); MONOCYTES ABSOLUTE AUTO 1.5 K/mm3 (0.0-0.8); MONOCYTES PERCENT AUTO 11.3 % (0.0-8.0); NEUTROPHILS ABSOLUTE AUTO 10.3 K/mm3 (1.8-7.7); NEUTROPHILS PERCENT AUTO 75.8 % (41.0-71.0); RED BLOOD CELL COUNT 4.88 M/mm3 (4.52-5.90); WHITE BLOOD CELL COUNT,WBC 13.57 K/mm3 (3.9-11.3)
[2024-06-06 12:50] LABS: PLATELET COUNT,PLT 132 K/mm3 (150-400)
[2024-06-06 13:02] LABS: A/G RATIO 1.1 (1-2); ALBUMIN 4.5 g/dl (3.4-5.0); ANION GAP 22.1 (5-15); BILIRUBIN TOTAL 1.8 mg/dL (0.2-1.0); BUN/CREATININE RATIO 17.1 (14-18); CALCIUM 9.8 mg/dL (8.5-10.1); CREATININE 1.4 mg/dL (0.7-1.3); EST CRCL DRUG DOSING (CG) 68.8 mL/min; POTASSIUM,K 3.1 mEq/L (3.5-5.1); PROTEIN TOTAL,TP 8.8 g/dl (6.4-8.2); TSH 2.755 uIU/mL (0.358-3.74)
[2024-06-06 13:06] LABS: SLIDE REVIEW ABNORMAL SMEAR
[2024-06-06 13:27] LABS: INR 0.99; PROTHROMBIN TIME 10.5 SECONDS (9.7-12.0)
[2024-06-06 13:28] LABS: PTT,PARTIAL THROMBOPLSTIN TIME 25.6 SECONDS (21.7-31.4)
[2024-06-06 13:40] LABS: LACTIC ACID 2.4 mmol/L (0.4-2.0)
[2024-06-06] MEDS: Famotidine 20 MG/2 ML SDV IVPUSH ONE (15:58)
[2024-06-06] MEDS: Lactated Ringers 1,000 ML IV ONE (15:58)
[2024-06-06 19:43] LABS: BARBITURATE SCREEN,URINE NEGATIVE (CUTOFF=200); BENZODIAZEPINES SCREEN,URINE PRESUMPTIVE POSITIVE (CUTOFF=150); BUPRENORPHINE SCREEN,URINE NEGATIVE (CUTOFF=10); METHADONE SCREEN, URINE NEGATIVE (CUT0FF=200); METHAMPHETAMINES SCREEN, URINE NEGATIVE (CUTOFF=500); OXYCODONE SCREEN,URINE NEGATIVE (CUT0FF=100); THC SCREEN,URINE 20 NG/ML PRESUMPTIVE POSITIVE (CUTOFF=50)
[2024-06-06 19:55] LABS: AMPHETAMINES SCREEN, URINE NEGATIVE (CUTOFF=500)
[2024-06-06] MEDS ORDERED: Polyethylene Glycol 3350 Powder 17 GM Packet PO PRN (20:14)
[2024-06-06] MEDS ORDERED: Ondansetron 4 MG/2 ML SDV IV PRN (20:14)
[2024-06-06] MEDS ORDERED: Acetaminophen 325 MG Tab PO PRN (20:14)
[2024-06-06] MEDS: Folic Acid 1 MG Tab PO SCH (21:18)
[2024-06-06] MEDS: LORazepam 2 MG/ML SDV IV PRN ×2 (21:18→23:25)
[2024-06-06] MEDS: Thiamine 100 MG Tab PO SCH (21:18)
[2024-06-06] MEDS: Multivitamin Tab PO SCH (21:18)
[2024-06-06] MEDS: Sodium Chloride 0.9% 1,000 ML IV SCH (21:19)
[2024-06-06] MEDS: Pantoprazole 40 MG Vial IVPUSH ONE (21:20)
[2024-06-07 04:46] LABS: BASOPHILS PERCENT AUTO 0.6 % (0.0-1.0); EOSINOPHILS PERCENT AUTO 0.1 % (0.0-6.0); HEMATOCRIT 33.3 % (42.0-52.0); HEMOGLOBIN 11.9 gm/dl (14.0-18.0); IMMATURE GRAN ABSOLUTE AUTO 0.04 K/mm3 (0.00-0.05); IMMATURE GRAN PERCENT AUTO 0.6 % (0.0-0.4); LYMPHOCYTES ABSOLUTE AUTO 1.4 K/mm3 (1.0-4.8); LYMPHOCYTES PERCENT AUTO 19.9 % (24.0-44.0); MEAN CORPUSCULAR HEMOGLOBIN 31.6 pg (28.0-32.0); MEAN CORPUSCULAR HGB CONC 35.7 g/dl (32.0-36.0); MEAN CORPUSCULAR VOLUME 88.3 fl (83.0-99.0); MEAN PLATELET VOLUME 11.6 fl (9.4-12.4); MONOCYTES PERCENT AUTO 13.5 % (0.0-8.0); NEUTROPHILS ABSOLUTE AUTO 4.6 K/mm3 (1.8-7.7); NEUTROPHILS PERCENT AUTO 65.3 % (41.0-71.0); PLATELET COUNT,PLT 75 K/mm3 (150-400); RED BLOOD CELL COUNT 3.77 M/mm3 (4.52-5.90)
[2024-06-07 05:15] LABS: ALBUMIN 3.1 g/dl (3.4-5.0); ANION GAP 16.8 (5-15); BILIRUBIN TOTAL 1.2 mg/dL (0.2-1.0); BUN/CREATININE RATIO 22.9 (14-18); CALCIUM 8.4 mg/dL (8.5-10.1); CREATININE 0.7 mg/dL (0.7-1.3); EST CRCL DRUG DOSING (CG) 137.6 mL/min; MAGNESIUM 1.5 mg/dL (1.8-2.4); POTASSIUM,K 2.8 mEq/L (3.5-5.1); PROTEIN TOTAL,TP 6.2 g/dl (6.4-8.2)
[2024-06-07] MEDS: Pantoprazole 40 MG Tab.CR PO SCH (05:49)
[2024-06-07] MEDS: Enoxaparin 40 MG/0.4 ML Syringe SUBCUT SCH (09:48)
[2024-06-07] MEDS: Calcium Carbonate 500 MG Tab.Chew PO PRN (11:20)
[2024-06-07] MEDS: Potassium Chloride 20 MEQ Tab.ER PO ONE ×2 (12:56→16:04)
[2024-06-07] MEDS: hydrOXYzine HCl 50 MG Tab PO PRN (14:54)
[2024-06-07] MEDS: busPIRone 15 MG Tab PO SCH (14:54)
[2024-06-07] MEDS: Melatonin 3 MG Tab PO SCH (20:38)
[2024-06-07] MEDS: Metoprolol Succinate 50 MG Tab.ER PO SCH (20:38)
[2024-06-08 04:40] LABS: BASOPHILS ABSOLUTE AUTO 0.1 K/mm3 (0.0-0.2); BASOPHILS PERCENT AUTO 0.6 % (0.0-1.0); EOSINOPHILS ABSOLUTE AUTO 0.1 K/mm3 (0.0-0.4); EOSINOPHILS PERCENT AUTO 0.8 % (0.0-6.0); HEMATOCRIT 33.2 % (42.0-52.0); IMMATURE GRAN ABSOLUTE AUTO 0.03 K/mm3 (0.00-0.05); IMMATURE GRAN PERCENT AUTO 0.4 % (0.0-0.4); LYMPHOCYTES ABSOLUTE AUTO 2.2 K/mm3 (1.0-4.8); LYMPHOCYTES PERCENT AUTO 27.9 % (24.0-44.0); MEAN CORPUSCULAR HEMOGLOBIN 31.8 pg (28.0-32.0); MEAN CORPUSCULAR HGB CONC 36.1 g/dl (32.0-36.0); MEAN CORPUSCULAR VOLUME 88.1 fl (83.0-99.0); MEAN PLATELET VOLUME 11.4 fl (9.4-12.4); MONOCYTES ABSOLUTE AUTO 1.1 K/mm3 (0.0-0.8); MONOCYTES PERCENT AUTO 13.7 % (0.0-8.0); NEUTROPHILS ABSOLUTE AUTO 4.4 K/mm3 (1.8-7.7); NEUTROPHILS PERCENT AUTO 56.6 % (41.0-71.0); PLATELET COUNT,PLT 89 K/mm3 (150-400); RED BLOOD CELL COUNT 3.77 M/mm3 (4.52-5.90); WHITE BLOOD CELL COUNT,WBC 7.81 K/mm3 (3.9-11.3)
[2024-06-08 05:44] LABS: A/G RATIO 0.9 (1-2); ANION GAP 13.4 (5-15); BILIRUBIN TOTAL 0.5 mg/dL (0.2-1.0); BUN/CREATININE RATIO 22.9 (14-18); CALCIUM 8.9 mg/dL (8.5-10.1); CREATININE 0.7 mg/dL (0.7-1.3); EST CRCL DRUG DOSING (CG) 137.6 mL/min; MAGNESIUM 1.6 mg/dL (1.8-2.4); PHOSPHORUS 3.1 mg/dL (2.6-4.7); POTASSIUM,K 3.4 mEq/L (3.5-5.1); PROTEIN TOTAL,TP 6.3 g/dl (6.4-8.2)
[2024-06-08 06:30] LABS: SLIDE REVIEW ABNORMAL SMEAR
[2024-06-08] MEDS: Lisinopril 20 MG Tab PO SCH (08:02)
[2024-06-08] MEDS: Magnesium Sulfate/Water Premix 2 GM in Premix Bag 1 BAG IV ONE (08:06)
[2024-06-08] MEDS: Potassium Chloride 20 MEQ Tab.ER PO ONE (09:36)
[2024-06-08 12:45] VITALS: BP 155/107
[2024-06-08 13:14] VITALS: PULSE 82
== END 2024-06-08 13:10 | disposition home or self-care (01) | DRG 897 ==
LOC: JD.ED 12:03 → JD.ICU 20:14
PROVIDERS: ADMIT Family Medicine; ATTEND Family Medicine
DX: F10.131 Alcohol abuse with withdrawal delirium (principal); I10 Essential (primary) hypertension; F41.9 Anxiety disorder, unspecified; R56.9 Unspecified convulsions; R44.1 Visual hallucinations; K29.70 Gastritis, unspecified, without bleeding; K20.90 Esophagitis, unspecified without bleeding; Z79.899 Other long term (current) drug therapy; Z98.890 Other specified postprocedural states
CPT/HCPCS: 36415; 80053; 80143; 80179; 80306; 80307; 83605; 83735; 84100; 84443; 84484; 85025; 85610; 85730; 87428-QW; 93005; A9270-GY; J1650; J2060; J2470; J3475; J3490; J7030; J7120

== ENCOUNTER 2024-07-13 15:04 | Inpatient (IN) | payer MEDICAID ==
[2024-07-13 17:06] LABS: BASOPHILS ABSOLUTE AUTO 0.1 K/mm3 (0.0-0.2); BASOPHILS PERCENT AUTO 1.2 % (0.0-1.0); EOSINOPHILS ABSOLUTE AUTO 0.1 K/mm3 (0.0-0.4); EOSINOPHILS PERCENT AUTO 1.2 % (0.0-6.0); HEMATOCRIT 40.4 % (42.0-52.0); HEMOGLOBIN 13.9 gm/dl (14.0-18.0); IMMATURE GRAN ABSOLUTE AUTO 0.01 K/mm3 (0.00-0.05); IMMATURE GRAN PERCENT AUTO 0.1 % (0.0-0.4); LYMPHOCYTES ABSOLUTE AUTO 1.9 K/mm3 (1.0-4.8); MEAN CORPUSCULAR HEMOGLOBIN 31.9 pg (28.0-32.0); MEAN CORPUSCULAR HGB CONC 34.4 g/dl (32.0-36.0); MEAN CORPUSCULAR VOLUME 92.7 fl (83.0-99.0); MEAN PLATELET VOLUME 10.5 fl (9.4-12.4); MONOCYTES ABSOLUTE AUTO 0.7 K/mm3 (0.0-0.8); MONOCYTES PERCENT AUTO 10.1 % (0.0-8.0); NEUTROPHILS ABSOLUTE AUTO 4.1 K/mm3 (1.8-7.7); NEUTROPHILS PERCENT AUTO 59.4 % (41.0-71.0); PLATELET COUNT,PLT 186 K/mm3 (150-400); RED BLOOD CELL COUNT 4.36 M/mm3 (4.52-5.90)
[2024-07-13] MEDS: LORazepam 2 MG/ML SDV IVPUSH ONE ×2 (17:17→20:06)
[2024-07-13] MEDS: Thiamine 100 MG Tab PO ONE (17:19)
[2024-07-13] MEDS: Folic Acid 1 MG Tab PO ONE (17:19)
[2024-07-13] MEDS: Sodium Chloride 0.9% 1,000 ML IV ONE (17:20)
[2024-07-13 17:41] LABS: A/G RATIO 1.2 (1-2); ALBUMIN 4.1 g/dl (3.4-5.0); ANION GAP 14.1 (5-15); BILIRUBIN TOTAL 0.7 mg/dL (0.2-1.0); CALCIUM 9.3 mg/dL (8.5-10.1); EST CRCL DRUG DOSING (CG) 96.32 mL/min; MAGNESIUM 1.5 mg/dL (1.8-2.4); POTASSIUM,K 4.1 mEq/L (3.5-5.1); PROTEIN TOTAL,TP 7.5 g/dl (6.4-8.2)
[2024-07-13] MEDS: LORazepam 2 MG/ML SDV ONE (18:11)
[2024-07-13] MEDS: Magnesium Sulfate/Water Premix 2 GM in Premix Bag 1 BAG IV ONE (18:16)
[2024-07-13] MEDS: chlordiazePOXIDE 25 MG Cap PO ONE (20:06)
[2024-07-13] MEDS: Multivitamin Tab PO ONE (20:46)
[2024-07-13 21:59] LABS: BARBITURATE SCREEN,URINE NEGATIVE (CUTOFF=200); BENZODIAZEPINES SCREEN,URINE PRESUMPTIVE POSITIVE (CUTOFF=150); BUPRENORPHINE SCREEN,URINE NEGATIVE (CUTOFF=10); METHADONE SCREEN, URINE NEGATIVE (CUT0FF=200); METHAMPHETAMINES SCREEN, URINE NEGATIVE (CUTOFF=500); OXYCODONE SCREEN,URINE NEGATIVE (CUT0FF=100); THC SCREEN,URINE 20 NG/ML PRESUMPTIVE POSITIVE (CUTOFF=50)
[2024-07-13 22:00] LABS: AMPHETAMINES SCREEN, URINE NEGATIVE (CUTOFF=500)
[2024-07-13] MEDS: Ondansetron 4 MG/2 ML SDV IV PRN (22:23)
[2024-07-13] MEDS: LORazepam 2 MG/ML SDV IV PRN (22:29)
[2024-07-13] MEDS: PHENobarbitaL sodium 260 MG in Sodium Chloride 0.9% 100 ML IV ONE (22:41)
[2024-07-13] MEDS: Sodium Chloride 0.9% 1,000 ML IV SCH (23:15)
[2024-07-14 04:47] LABS: BASOPHILS ABSOLUTE AUTO 0.1 K/mm3 (0.0-0.2); BASOPHILS PERCENT AUTO 1.6 % (0.0-1.0); EOSINOPHILS ABSOLUTE AUTO 0.2 K/mm3 (0.0-0.4); EOSINOPHILS PERCENT AUTO 3.3 % (0.0-6.0); HEMATOCRIT 38.4 % (42.0-52.0); HEMOGLOBIN 13.3 gm/dl (14.0-18.0); IMMATURE GRAN ABSOLUTE AUTO 0.01 K/mm3 (0.00-0.05); IMMATURE GRAN PERCENT AUTO 0.2 % (0.0-0.4); LYMPHOCYTES ABSOLUTE AUTO 2.1 K/mm3 (1.0-4.8); LYMPHOCYTES PERCENT AUTO 35.5 % (24.0-44.0); MEAN CORPUSCULAR HEMOGLOBIN 31.9 pg (28.0-32.0); MEAN CORPUSCULAR HGB CONC 34.6 g/dl (32.0-36.0); MEAN CORPUSCULAR VOLUME 92.1 fl (83.0-99.0); MEAN PLATELET VOLUME 10.6 fl (9.4-12.4); MONOCYTES ABSOLUTE AUTO 0.7 K/mm3 (0.0-0.8); MONOCYTES PERCENT AUTO 12.1 % (0.0-8.0); NEUTROPHILS ABSOLUTE AUTO 2.7 K/mm3 (1.8-7.7); NEUTROPHILS PERCENT AUTO 47.3 % (41.0-71.0); PLATELET COUNT,PLT 167 K/mm3 (150-400); RED BLOOD CELL COUNT 4.17 M/mm3 (4.52-5.90); WHITE BLOOD CELL COUNT,WBC 5.77 K/mm3 (3.9-11.3)
[2024-07-14 05:10] LABS: A/G RATIO 1.1 (1-2); ALBUMIN 3.4 g/dl (3.4-5.0); ANION GAP 13.8 (5-15); BILIRUBIN TOTAL 0.7 mg/dL (0.2-1.0); BUN/CREATININE RATIO 6.3 (14-18); CALCIUM 8.5 mg/dL (8.5-10.1); CREATININE 0.8 mg/dL (0.7-1.3); EST CRCL DRUG DOSING (CG) 120.4 mL/min; POTASSIUM,K 3.8 mEq/L (3.5-5.1); PROTEIN TOTAL,TP 6.5 g/dl (6.4-8.2)
[2024-07-14] MEDS: Nicotine Polacrilex 2 MG Gum CHEW PRN (06:53)
[2024-07-14] MEDS: Thiamine 100 MG Tab PO SCH (07:52)
[2024-07-14] MEDS: Enoxaparin 40 MG/0.4 ML Syringe SUBCUT SCH (07:52)
[2024-07-14] MEDS: Nicotine 14 MG/24 Hr Patch TRDERM SCH (07:52)
[2024-07-14] MEDS: Folic Acid 1 MG Tab PO SCH (07:52)
[2024-07-14] MEDS: Multivitamin Tab PO SCH (07:53)
[2024-07-14] MEDS: LORazepam 2 MG/ML SDV IV PRN (10:01)
[2024-07-14] MEDS: Pantoprazole 40 MG Vial IVPUSH SCH (10:01)
[2024-07-14] MEDS: chlordiazePOXIDE 25 MG Cap PO SCH (13:32)
[2024-07-15] MEDS: Acetaminophen 325 MG Tab PO PRN (04:15)
[2024-07-15 05:35] LABS: BASOPHILS ABSOLUTE AUTO 0.1 K/mm3 (0.0-0.2); EOSINOPHILS ABSOLUTE AUTO 0.2 K/mm3 (0.0-0.4); EOSINOPHILS PERCENT AUTO 2.2 % (0.0-6.0); HEMATOCRIT 39.9 % (42.0-52.0); HEMOGLOBIN 13.8 gm/dl (14.0-18.0); IMMATURE GRAN ABSOLUTE AUTO 0.02 K/mm3 (0.00-0.05); IMMATURE GRAN PERCENT AUTO 0.3 % (0.0-0.4); LYMPHOCYTES ABSOLUTE AUTO 1.8 K/mm3 (1.0-4.8); LYMPHOCYTES PERCENT AUTO 26.3 % (24.0-44.0); MEAN CORPUSCULAR HEMOGLOBIN 31.9 pg (28.0-32.0); MEAN CORPUSCULAR HGB CONC 34.6 g/dl (32.0-36.0); MEAN CORPUSCULAR VOLUME 92.1 fl (83.0-99.0); MEAN PLATELET VOLUME 10.9 fl (9.4-12.4); MONOCYTES ABSOLUTE AUTO 0.8 K/mm3 (0.0-0.8); MONOCYTES PERCENT AUTO 11.8 % (0.0-8.0); NEUTROPHILS ABSOLUTE AUTO 4.1 K/mm3 (1.8-7.7); NEUTROPHILS PERCENT AUTO 58.4 % (41.0-71.0); PLATELET COUNT,PLT 180 K/mm3 (150-400); RED BLOOD CELL COUNT 4.33 M/mm3 (4.52-5.90); WHITE BLOOD CELL COUNT,WBC 6.93 K/mm3 (3.9-11.3)
[2024-07-15 06:02] LABS: A/G RATIO 1.1 (1-2); ALBUMIN 3.5 g/dl (3.4-5.0); ANION GAP 13.1 (5-15); BILIRUBIN TOTAL 0.4 mg/dL (0.2-1.0); BUN/CREATININE RATIO 7.5 (14-18); CALCIUM 8.7 mg/dL (8.5-10.1); CREATININE 0.8 mg/dL (0.7-1.3); EST CRCL DRUG DOSING (CG) 120.4 mL/min; POTASSIUM,K 4.1 mEq/L (3.5-5.1); PROTEIN TOTAL,TP 6.8 g/dl (6.4-8.2)
[2024-07-16 05:49] LABS: BASOPHILS ABSOLUTE AUTO 0.1 K/mm3 (0.0-0.2); BASOPHILS PERCENT AUTO 1.1 % (0.0-1.0); EOSINOPHILS ABSOLUTE AUTO 0.1 K/mm3 (0.0-0.4); EOSINOPHILS PERCENT AUTO 2.3 % (0.0-6.0); HEMATOCRIT 43.1 % (42.0-52.0); HEMOGLOBIN 15.2 gm/dl (14.0-18.0); IMMATURE GRAN ABSOLUTE AUTO 0.03 K/mm3 (0.00-0.05); IMMATURE GRAN PERCENT AUTO 0.5 % (0.0-0.4); LYMPHOCYTES ABSOLUTE AUTO 1.8 K/mm3 (1.0-4.8); LYMPHOCYTES PERCENT AUTO 28.8 % (24.0-44.0); MEAN CORPUSCULAR HEMOGLOBIN 31.9 pg (28.0-32.0); MEAN CORPUSCULAR HGB CONC 35.3 g/dl (32.0-36.0); MEAN CORPUSCULAR VOLUME 90.5 fl (83.0-99.0); MEAN PLATELET VOLUME 10.8 fl (9.4-12.4); MONOCYTES ABSOLUTE AUTO 0.8 K/mm3 (0.0-0.8); MONOCYTES PERCENT AUTO 12.2 % (0.0-8.0); NEUTROPHILS ABSOLUTE AUTO 3.4 K/mm3 (1.8-7.7); NEUTROPHILS PERCENT AUTO 55.1 % (41.0-71.0); PLATELET COUNT,PLT 199 K/mm3 (150-400); RED BLOOD CELL COUNT 4.76 M/mm3 (4.52-5.90); WHITE BLOOD CELL COUNT,WBC 6.21 K/mm3 (3.9-11.3)
[2024-07-16 05:52] LABS: A/G RATIO 1.1 (1-2); ALBUMIN 3.8 g/dl (3.4-5.0); ANION GAP 13.6 (5-15); BILIRUBIN TOTAL 0.4 mg/dL (0.2-1.0); CALCIUM 9.3 mg/dL (8.5-10.1); CREATININE 0.7 mg/dL (0.7-1.3); EST CRCL DRUG DOSING (CG) 137.6 mL/min; POTASSIUM,K 3.6 mEq/L (3.5-5.1); PROTEIN TOTAL,TP 7.2 g/dl (6.4-8.2)
[2024-07-16] MEDS: Potassium Chloride 20 MEQ Tab.ER PO SCH (08:21)
[2024-07-16] MEDS: Pantoprazole 40 MG Tab.CR PO SCH (08:22)
[2024-07-16] MEDS: Lisinopril 20 MG Tab PO SCH (08:22)
[2024-07-16] MEDS: LORazepam 2 MG/ML SDV IVPUSH ONE (09:59)
[2024-07-16] MEDS: LORazepam 2 MG/ML SDV IV PRN (12:10)
[2024-07-16] MEDS: Melatonin 3 MG Tab PO PRN (22:08)
[2024-07-17] MEDS: hydrOXYzine HCl 25 MG Tab PO ONE (10:27)
[2024-07-17 11:22] VITALS: BP 121/87; PULSE 90
== END 2024-07-17 11:51 | disposition home or self-care (01) | DRG 897 ==
LOC: JD.ED 15:04 → JD.ICU 22:15
PROVIDERS: ADMIT Family Medicine; ATTEND Internal Medicine
DX: F10.231 Alcohol dependence with withdrawal delirium (principal); G40.89 Other seizures; I10 Essential (primary) hypertension; F41.9 Anxiety disorder, unspecified; F17.210 Nicotine dependence, cigarettes, uncomplicated; F12.90 Cannabis use, unspecified, uncomplicated; Z79.899 Other long term (current) drug therapy
CPT/HCPCS: 36415; 80053; 80306; 80307; 83735; 84100; 85025; 93005; 93010; 96361; 96365; 96366; 96375; 96376; 99283; 99285-25; A9270-GY; J1650; J2060; J2405; J2470; J2560; J3475; J7030